=== PATIENT | male | born 1950 | race Caucasian/White ===

== ENCOUNTER → 2016-05-23 | Outpatient (CLI) | payer BC ==
[~2016-05-23] MED LIST: ALBU18002 INH; ASPCH81X PO; CETI10TA84 PO; FLUO20CA20 PO; FLUT27.5 NAE; LORA-741 PO; LOSA100T2 PO; MELA3TAB12 PO; MOME110A INH; PANT40TA PO; SUTENT PO; TRAM-10 PO; URC10 PO; VALA500T60 PO
--- NOTE | 2016-05-23 12:07 | DIAGNOSTIC IMAGING REPORT ---
CHEST CT WITHOUT CONTRAST CT DOSE: HISTORY: RENAL CELL CA *NO IV* TECHNIQUE: Multiaxial CT images of the chest were performed without contrast. COMPARISON: Chest CT 11/08/2015. PET CT 02/13/2016. FINDINGS: No pneumothorax or pleural effusions. The central airways are patent. Mild emphysema. The left lung is clear. The 8 mm irregular density within the right lung apex remains stable. There has been interval placement of a metallic fiducial marker within the right lung apex. There are 3 subcentimeter pulmonary nodules within the right middle lobe which remain stable. The dominant nodule on image 223 measures 6 mm. The smaller nodules are seen on images 176 and 185. No new pulmonary nodules identified. No suspicious lytic or blastic osseous lesions. A few stable small sclerotic foci within the right ribs favor bone islands. No mediastinal or hilar lymphadenopathy. The heart is normal in size. Prior left nephrectomy. Cystic focus at the nephrectomy bed is again noted. There is increase in size in the hypodense lesion abutting the superior border of the pancreatic tail. This measures 2.1 cm, previously measuring 9 mm. IMPRESSION: 1. No significant change within the chest. No definite evidence for metastatic disease. 2. Stable subcentimeter pulmonary nodules within the right lung. 3. Mild emphysema. 4. Increase in size in a 2.1 cm hypodense lesion at the superior border of the pancreatic tail. This is concerning for a metastatic lesion. Please refer to the dedicated abdomen and pelvis CT performed the same day for further evaluation of the abdominal structures. Electronically signed by: Milo Cruz M.D. 05/23/2016 12:05 PM Dictated Date/Time: 05/23/2016 11:53 AM
--- NOTE | 2016-05-23 12:17 | DIAGNOSTIC IMAGING REPORT ---
CT SCAN OF THE ABDOMEN AND PELVIS WITHOUT IV CONTRAST CLINICAL HISTORY: Renal cell carcinoma. COMPARISON STUDY: Abdominal CT dated 08/16/2015 and PET/CT dated 02/13/2016. TECHNIQUE: CT scan of the abdomen and pelvis is performed from the lung bases to the proximal femora. Images are reviewed in the axial, sagittal, and coronal planes. IV contrast was not administered for this examination. Oral contrast was utilized. Automated dose control exposure was utilized. CT DOSE: 1116.46 mGy.cm FINDINGS: Lung bases: The heart is normal in size and without pericardial effusion. A 6 mm right middle lobe pulmonary nodule image #32 is unchanged. The lung bases are otherwise clear. There is a tiny hiatal hernia. Liver: The unenhanced liver is normal in size, contour, and attenuation. There is no intrahepatic biliary ductal dilatation. A 1.8 cm low-attenuation focus in the subcapsular liver on image #99 was not clearly seen previously. This may represent focal fatty infiltration. Gallbladder: Unremarkable. Spleen: Normal in size and attenuation. Pancreas: There is a 2.4 x 2.2 cm lesion in the pancreatic tail seen on axial image #93. This was not clearly seen on the 08/16/2015 examination and is concerning for a pancreatic metastasis. The proximal pancreas is moderately atrophic and grossly unremarkable. Adrenal glands: The right adrenal gland is normal in appearance. The left adrenal gland is not identified and presumed surgically absent. Kidneys: The left kidney is surgically absent. There is no evidence of recurrent/residual soft tissue lesion in the operative bed. A postoperative fluid collection at the nephrectomy site has decreased in size from previous, measuring approximately 8 x 5.5 cm. The right kidney demonstrates mild cortical atrophy and is without hydronephrosis. There are no renal calculi identified. A 1.5 cm cyst arising from the right upper pole and a subcentimeter hyperdense lesion the right upper pole likely representing a complex cyst are similar to previous. Parapelvic cysts are unchanged. Abdominal vasculature: The abdominal aorta is normal in course and caliber noting moderate atherosclerotic calcification. Bowel: The small bowel and colon are normal in course and caliber. The appendix is well-visualized and normal. Peritoneum: There is no intraperitoneal free air or abdominal ascites. Lymphadenopathy: None. Pelvic viscera: The bladder, prostate, and seminal vesicles are normal as visualized. Skeletal structures: The skeletal structures are osteopenic. There is mild lumbosacral spondylosis. No lytic or blastic lesions are seen. Bone islands in the right iliac wing and the right 11th rib are unchanged. IMPRESSION: 1. There is a 2.2 x 2.4 cm low-attenuation lesion seen in the pancreatic tail. This is new from prior examinations and highly concerning for a pancreatic metastasis. 2. No additional foci of metastatic disease are suspected in the abdomen or pelvis. 3. There are postoperative changes from left nephrectomy and left adrenalectomy. A simple appearing fluid collection within the operative bed has decreased in size from prior studies and likely represents a seroma. 4. There is a 1.8 cm focus of subcapsular low-attenuation in the left lobe of the liver. This was not clearly seen previously and this likely represents focal fatty infiltration. Attention at follow-up is recommended. 5. A 6 mm right middle lobe pulmonary nodule is unchanged. See report of chest CT performed concurrently for detailed intrathoracic findings. 6. Additional changes as above. Electronically signed by: Patrick Blankenship M.D. 05/23/2016 12:15 PM Dictated Date/Time: 05/23/2016 12:01 PM
== END | disposition home or self-care (01) ==
LOC: C.CTS 11:20
PROVIDERS: ATTEND Internal Medicine Hematology & Oncology
DX: C64.2 Malignant neoplasm of left kidney, except renal pelvis (principal); R91.1 Solitary pulmonary nodule

== ENCOUNTER → 2016-05-27 | Outpatient (CLI) | payer BC ==
[2016-05-27 16:07] LABS: BASO % 0.3 %; BASO ABS # 0.01 K/uL (0-0.2); COMPLETE YES; EOS % 3.8 %; HEMATOCRIT 41.1 % (42-52); LYMPH % 38.1 %; LYMPH ABS # 1.42 K/uL (1.2-3.4); MEAN CELL VOLUME 81.7 fL (80-100); MEAN CORPUSCULAR HEMOGLOBIN 27.4 pg (25-34); MEAN CORPUSCULAR HGB CONC 33.6 g/dl (32-36); MEAN PLATELET VOLUME 10.2 fL (7.4-10.4); NEUT % 49.8 %; PLATELET COUNT 120 K/uL (130-400); RED BLOOD COUNT 5.03 M/uL (4.7-6.1); WHITE BLOOD COUNT 3.73 K/uL (4.8-10.8)
[2016-05-27 16:42] LABS: ALT/SGPT 22 U/L (12-78); BLOOD UREA NITROGEN 24 mg/dl (7-18); BUN/CREATININE RATIO 12.7 (10-20); CALCIUM 8.3 mg/dl (8.5-10.1); CARBON DIOXIDE 29 mmol/L (21-32); CHLORIDE 107 mmol/L (98-107); GLUCOSE 105 mg/dl (70-99); MAGNESIUM 1.8 mg/dl (1.8-2.4); POTASSIUM 4.1 mmol/L (3.5-5.1); SODIUM 145 mmol/L (136-145)
[2016-05-27 16:49] LABS: ALB/GLOB RATIO 1.1 (0.9-2); ALKALINE PHOSPHATASE 101 U/L (45-117); AST/SGOT 18 U/L (15-37)
== END | disposition home or self-care (01) ==
LOC: C.LAB 14:47
PROVIDERS: ATTEND Internal Medicine Hematology & Oncology
DX: C64.2 Malignant neoplasm of left kidney, except renal pelvis (principal)

== ENCOUNTER → 2016-06-04 | Outpatient (CLI) | payer BC ==
--- NOTE | 2016-06-04 09:57 | DIAGNOSTIC IMAGING REPORT ---
PET/CT CLINICAL HISTORY: Renal cell carcinoma. New pancreatic lesion. TECHNIQUE: A PET/CT was performed from the skull base through the upper thighs following intravenous injection of 13.78 mCi of F 18 FDG IV. The injection was performed at 7:26 AM on June 04, 2016 and imaging began at 8:17 AM on June 04, 2016. Unenhanced CT was performed for attenuation correction purposes and anatomic localization. COMPARISON STUDY: PET/CT February 13, [address] of the chest, abdomen pelvis January 21, 2017. FINDINGS: Head and neck: No suspicious FDG uptake is identified within the neck. There is no cervical lymphadenopathy. Chest: Fiducial markers within the right upper lobe are noted. An 8 mm irregular density within the right upper lobe shown on image 71 is unchanged since prior exam. An additional irregular density adjacent to the fiducial markers is unchanged. These do not have significant FDG uptake although are likely below size threshold for PET evaluation. A 4 mm right middle lobe nodule shown image 102 is unchanged since prior PET/CT. An additional right middle lobe nodule is benign given stability from earlier studies. No new pulmonary nodules are present. Abdomen and Pelvis: There are postsurgical findings consistent with a left nephrectomy. The nephrectomy bed fluid collection is similar to prior CT, measuring 8.6 x 5.7 cm. Note is made of a 2.6 x 2.6 cm centrally hypodense lesion either arising from or adjacent to the pancreatic tail extending superiorly from the pancreas. This corresponds to the lesion shown on prior CT. This demonstrates mild peripheral FDG uptake with an SUV max of 3.1. No additional pancreatic lesions are identified on this unenhanced exam. A suspected hyperdense cyst within the upper pole of the right kidney is unchanged. There is no evidence for a bowel obstruction. No pelvic lymphadenopathy is present. Musculoskeletal: No suspicious skeletal uptake is identified. IMPRESSION: 1. Mild peripheral FDG uptake of the 2.6 cm pancreatic lesion. This appears to arise from the pancreatic tail. This lesion is highly suggestive of a neoplastic process and metastatic disease is favored. A primary pancreatic lesion could appear similar although is considered less likely. If indicated, consideration could be given to a point with endoscopic ultrasound. 2. Otherwise, no change in appearance since PET/CT of February 05, 2016. Stable right lung nodules. These remain indeterminate and should be assessed on subsequent studies. Electronically signed by: Kavin Tavera M.D. 06/04/2016 9:55 AM Dictated Date/Time: 06/04/2016 9:18 AM
== END | disposition home or self-care (01) ==
LOC: C.PET 07:15
PROVIDERS: ATTEND Internal Medicine Hematology & Oncology
DX: C64.2 Malignant neoplasm of left kidney, except renal pelvis (principal)

== ENCOUNTER → 2016-06-12 | Outpatient (CLI) | payer BC ==
[2016-06-12 12:10] LABS: BASO % 0.2 %; BASO ABS # 0.01 K/uL (0-0.2); COMPLETE YES; EOS % 2.3 %; IG% 0.2 %; LYMPH % 29.1 %; LYMPH ABS # 1.38 K/uL (1.2-3.4); MEAN CELL VOLUME 82.2 fL (80-100); MEAN CORPUSCULAR HEMOGLOBIN 27.9 pg (25-34); MEAN PLATELET VOLUME 9.9 fL (7.4-10.4); MONO % 6.1 %; NEUT % 62.1 %; PLATELET COUNT 143 K/uL (130-400); RED BLOOD COUNT 5.23 M/uL (4.7-6.1); WHITE BLOOD COUNT 4.75 K/uL (4.8-10.8)
[2016-06-12 12:52] LABS: ALB/GLOB RATIO 1.2 (0.9-2); ALKALINE PHOSPHATASE 108 U/L (45-117); ALT/SGPT 25 U/L (12-78); AST/SGOT 17 U/L (15-37); BLOOD UREA NITROGEN 22 mg/dl (7-18); BUN/CREATININE RATIO 10.4 (10-20); CARBON DIOXIDE 30 mmol/L (21-32); CHLORIDE 106 mmol/L (98-107); GLUCOSE 114 mg/dl (70-99); MAGNESIUM 1.9 mg/dl (1.8-2.4); POTASSIUM 3.8 mmol/L (3.5-5.1); SODIUM 144 mmol/L (136-145)
== END | disposition home or self-care (01) ==
LOC: C.LAB 10:53
PROVIDERS: ATTEND Internal Medicine Hematology & Oncology
DX: C64.2 Malignant neoplasm of left kidney, except renal pelvis (principal)

== ENCOUNTER 2016-06-27 08:31 | Day surgery (SDC) | payer BC ==
[2016-06-18 13:31] VITALS: BMI 27.0
[~2016-06-27] VITALS: Ht 182.9 cm; Wt 90.9 kg
[~2016-06-27 08:31] MED LIST changes: -FLUO20CA20 PO
[2016-06-27 08:57] VITALS: BP 142/89; PULSE 81; TEMP 36.6; O2SAT 94; Ht 182.9 cm; Wt 90.9 kg
[2016-06-27 09:05] LABS: HEMATOCRIT 43.1 % (42-52); MEAN CORPUSCULAR HEMOGLOBIN 29.2 pg (25-34); RED BLOOD COUNT 5.13 M/uL (4.7-6.1); WHITE BLOOD COUNT 4.39 K/uL (4.8-10.8)
[2016-06-27] MEDS ORDERED: NALOXONE HCL 0.4 MG/1 ML VIAL/CARP IV PRN (09:15)
[2016-06-27] MEDS ORDERED: ATROPINE SULFATE 0.1 MG/ML 5ML SYR IV PRN (09:15)
[2016-06-27] MEDS ORDERED: HYDROmorphone INJ 2 MG/ML SYR/VIAL IV PRN (09:15)
[2016-06-27] MEDS ORDERED: FENTANYL CITRATE INJ 50 MCG/1 ML 2 ML VIAL IV PRN (09:15)
[2016-06-27] MEDS ORDERED: MEPERIDINE HCL 25 MG/ML CARP IV PRN (09:15)
[2016-06-27] MEDS ORDERED: EpHEDrine SULFATE INJ 50 MG/ML AMP IV PRN (09:15)
[2016-06-27] MEDS ORDERED: LABETALOL HCL IV 5 MG/ML 20ML IV PRN (09:15)
[2016-06-27] MEDS ORDERED: ONDANSETRON INJ 2 MG/ML 2 ML VIAL IV PRN (09:15)
[2016-06-27] MEDS ORDERED: FLUMAZENIL 0.1 MG/1 ML 10 ML VIAL IV PRN (09:15)
[2016-06-27] MEDS ORDERED: PHENYLEPHRINE 100MCG/ML 5ML SYR IV PRN (09:15)
[2016-06-27 09:24] LABS: BUN/CREATININE RATIO 9.7 (10-20); CALCIUM 8.4 mg/dl (8.5-10.1); CREATININE 2.1 mg/dl (0.60-1.40); POTASSIUM 3.4 mmol/L (3.5-5.1)
[2016-06-27 09:37] LABS: MEAN CORPUSCULAR HGB CONC 34.8 g/dl (32-36); MEAN PLATELET VOLUME 9.5 fL (7.4-10.4); PLATELET COUNT 85 K/uL (130-400); PLT ESTIMATE DECREASED
[2016-06-27] MEDS ORDERED: PROPOFOL IV EMULSION 10 MG/ML 20 ML VIAL IV ONE ×2 (09:52→11:35)
[2016-06-27] MEDS ORDERED: DEXAMETHASONE SOD INJ 4 MG/ML VIAL ONE (09:52)
[2016-06-27] MEDS ORDERED: ROCURONIUM BROMIDE 10 MG/ML 5 ML VIAL ONE (09:52)
[2016-06-27] MEDS ORDERED: ONDANSETRON INJ 2 MG/ML 2 ML VIAL ONE (09:52)
[2016-06-27] MEDS ORDERED: LIDOCAINE HCL 2% 2 ML VIAL (20MG/ML) ONE (09:52)
[2016-06-27] MEDS ORDERED: MIDAZOLAM HCL 1 MG/ML 2ML VIAL ONE (09:53)
[2016-06-27] MEDS ORDERED: FENTANYL CITRATE INJ 50 MCG/1 ML 2 ML VIAL ONE (09:53)
[2016-06-27] MEDS ORDERED: SODIUM CHLORIDE 0.9% 500ML 500 ML IV ONE ×3 (10:00→10:30)
--- NOTE | 2016-06-27 10:30 | Endo History and Physical ---
History & Physical Date of Service: Jun 27, 2016. Chief Complaint: Referring Physician: Past Medical History Asthma, Cancer, Hypertension, Kidney Disease, Other renal cell CA; pancreatic lesion inbody/tail Past Surgical History Hx Cardiac Surgery: No Hx Internal Defibrillator: No Hx Pacemaker: No Hx Abdominal Surgery: No Hx Post-Op Nausea and Vomiting: No Hx Cancer Surgery: Yes (RT CRANIOTOMY) Hx Thoracic Surgery: Yes (BRONCHOSCOPY) Hx Orthopedic: Yes (LEFT KNEE ARTHROSCOPY) Hx Urinary Tract Surgery: Yes (PARTIAL LEFT NEPHECTOMY, LEFT TOTAL NEPHRECTOMY , RIGHT KIDNEY BIOPSY) Social History Smoking Status: Former Smoker Hx Substance Use: No Hx Alcohol Use: No (RARE) Allergies Coded Allergies: No Known Drug Allergy (Verified Allergy, Unknown, `, 06/27/16) Current Medications Reported Home Medications Medications Dose Route/Sig Max Daily Dose Days Date Category [Sutent] 50 Mg PO HS 06/18/16 Reported Protonix (Pantoprazole Sodium) 40 Mg Tab 40 Mg PO BID 02/06/16 Reported Proair Respiclick (Albuterol Sulfate) 108 Mcg/Act Aer 1 Puff INH BID PRN 02/06/16 Reported Aspirin Chewable (Aspirin) 81 Mg Chew 81 Mg PO QAM 02/06/16 Reported Melatonin (Melatonin-Pyridoxine) 1 Tab Tab 3 Mg PO HS 02/06/16 Reported Zyrtec (Cetirizine HCl) 10 Mg Tab 10 Mg PO QAM 02/06/16 Reported Valtrex (Valacyclovir HCl) 500 Mg Tab 500 Mg PO BID PRN 02/06/16 Reported Ultram (Tramadol HCl) 50 Mg Tab 1 Tab PO TID PRN 30 02/06/16 Reported Veramyst (Fluticasone Furoate) 27.5 Mcg/[place] Spr 2 [place] RIANNA DAILY PRN 30 02/06/16 Reported Potassium Citrate 10 Meq Tab 1 Tab PO BID 02/06/16 Reported Hyzaar (Losartan Potassium & Hydrochlo) 1 Tab Tab 1 Tab PO QAM 02/06/16 Reported Ativan (Lorazepam) 0.5 Mg Tab 0.5 Mg PO Q6H PRN 02/06/16 Reported Asmanex 30 Metered Doses (Mometasone Furoate (Inhalation) 110 Mcg/Inh Aer 1 Puff INH QAM 02/06/16 Reported Vital Signs Weight (Kilograms): 90.91 Height (Feet): 6 Height (Inches): 0 Date Time Temp Pulse Resp B/P Pulse Ox O2 Delivery O2 Flow Rate FiO2 06/27/16 08:57 36.6 81 18 142/89 94 Room Air Physical Exam AAO x3 Nl s1s2 lungs CTA Abd soft NT/ND + Bs - CCe plt 85K; off ASA x 1 week kristie Assessment and Plan EUS/FNA
[2016-06-27] MEDS ORDERED: METOPROLOL TARTRATE 1 MG/ML VIAL ONE (10:55)
[2016-06-27] MEDS ORDERED: CIPROFLOXACIN 400MG / 200ML D5W ONE (11:10)
[2016-06-27] MEDS ORDERED: NEOSTIGMINE METHYLSULFATE 5 MG/5 ML SYR ONE (11:55)
[2016-06-27] MEDS ORDERED: GLYCOPYRROLATE INJ 0.2 MG/ML VIAL ONE (11:55)
--- NOTE | 2016-06-27 12:41 | GI REPORT ---
Procedure Date: 06/27/2016 10:39 AM Procedure: Upper EUS Indications: Suspected mass in pancreas on CT scan, Abnormal abdominal PET scan Medicines: General Anesthesia Complications: No immediate complications. Estimated blood loss: Minimal. Estimated Blood Loss: Estimated blood loss: none. Procedure: Pre-Anesthesia Assessment: - Prior to the procedure, a History and Physical was performed, and patient medications and allergies were reviewed. The patient's tolerance of previous anesthesia was also reviewed. The risks and benefits of the procedure and the sedation options and risks were discussed with the patient. All questions were answered, and informed consent was obtained. Prior Anticoagulants: The patient has taken aspirin, last dose was 7 days prior to procedure. ASA Grade Assessment: II - A patient with mild systemic disease. After reviewing the risks and benefits, the patient was deemed in satisfactory condition to undergo the procedure. After obtaining informed consent, the endoscope was passed under direct vision. Throughout the procedure, the patient's blood pressure, pulse, and oxygen saturations were monitored continuously. The Endosonoscope was introduced through the mouth, and advanced to the duodenum for ultrasound examination from the esophagus, stomach and duodenum. The upper EUS was accomplished without difficulty. The patient tolerated the procedure well. Findings: Endoscopic Finding : The examined esophagus was normal. The entire examined stomach was normal. The ampulla, duodenal bulb, first part of the duodenum, 2nd part of the duodenum and area of the papilla were normal. Endosonographic Finding : The esophagus, stomach and duodenum and adjacent structures were visualized endosonographically. There was no sign of significant endosonographic abnormality in the esophagus. No pathologic lymphadenopathy was identified. Endosonographic images of the stomach were unremarkable. No pathologic lymphadenopathy was identified. There was no sign of significant endosonographic abnormality in the ampulla, in the duodenal bulb and in the second portion of the duodenum. No pathologic lymphadenopathy and no masses were identified. There was no sign of significant endosonographic abnormality in the ampulla. No pathologic lymphadenopathy was identified. There was no sign of significant endosonographic abnormality in the common bile duct, in the gallbladder neck and in the gallbladder body. An unremarkable gallbladder, no pathologic lymphadenopathy, no stones, no biliary sludge and ducts of normal caliber were identified. There was diffuse abnormal echotexture in the liver. This was characterized by a heterogenous appearance. A round mass was identified in the pancreatic tail. The mass was hypoechoic, hyperechoic and heterogenous. The mass measured 26 mm by 24 mm in maximal cross-sectional diameter. The endosonographic borders were poorly-defined. The remainder of the pancreas was examined. The endosonographic appearance of parenchyma and the upstream pancreatic duct indicated no duct dilation, no ductal calcifications and that the remainder of the pancreas was unremarkable. Fine needle aspiration for cytology was performed. Color Doppler imaging was utilized prior to needle puncture to confirm a lack of significant vascular structures within the needle path. Six passes total were made with the 22 gauge needle ( 3 passes) and with the 25 gauge needle (3 passes) using a transgastric approach. Some passes were made with a stylet. A steam crane operator was present and performed a preliminary cytologic examination. The cellularity of the specimen was adequate. Final cytology results are pending. No lymphadenopathy seen. 5 X 8 CM CYST ADJACENT TO SPLEEN BUT SEPARATE AND SEPARATE FROM NEARBY VESSELS AND THE PANCREATIC LESION. NO INTERNAL DEBRIS IDENTIFIED. No samples/ aspitration performed. Impression: - Normal esophagus. - Normal stomach. - Normal ampulla, duodenal bulb, first part of the duodenum, 2nd part of the duodenum and area of the papilla. - There was no sign of significant pathology in the esophagus. - Endosonographic images of the stomach were unremarkable. - There was no sign of significant pathology in the ampulla, in the duodenal bulb and in the second portion of the duodenum. - There was no sign of significant pathology in the common bile duct, in the gallbladder neck and in the gallbladder body. - There was diffuse abnormal echotexture in the liver. This was characterized by a heterogenous appearance. - A mass was identified in the pancreatic tail. Fine needle aspiration performed. Recommendation: - Discharge patient to home (ambulatory). - Clear liquid diet today. - Advance diet as tolerated. - Await cytology results. - Return to referring physician as previously scheduled. - The findings and recommendations were discussed with the referring physician.( Dr Warren) MD Niels Crabtree MD 06/27/2016 12:40:40 PM This report has been signed electronically. Note Initiated On: 06/27/2016 10:39 AM I attest to the content of the Intraoperative Record and orders documented therein, exceptions below
--- NOTE | 2016-06-27 12:43 | Discharge Instructions ---
Endoscopy Patient Instructions Date / Procedure(s) Performed Jun 27, 2016. Allergy Information Coded Allergies: No Known Drug Allergy (Verified Allergy, Unknown, `, 06/27/16) Discharge Date / Findings Jun 27, 2016. 1) pancreatic mass- FNA performed Medication Instructions Restart Stopped Medication(s): Reported Home Medications Medications Dose Route/Sig Max Daily Dose Days Date Category [Sutent] 50 Mg PO HS 06/18/16 Reported Protonix (Pantoprazole Sodium) 40 Mg Tab 40 Mg PO BID 02/06/16 Reported Proair Respiclick (Albuterol Sulfate) 108 Mcg/Act Aer 1 Puff INH BID PRN 02/06/16 Reported Aspirin Chewable (Aspirin) 81 Mg Chew 81 Mg PO QAM 02/06/16 Reported Melatonin (Melatonin-Pyridoxine) 1 Tab Tab 3 Mg PO HS 02/06/16 Reported Zyrtec (Cetirizine HCl) 10 Mg Tab 10 Mg PO QAM 02/06/16 Reported Valtrex (Valacyclovir HCl) 500 Mg Tab 500 Mg PO BID PRN 02/06/16 Reported Ultram (Tramadol HCl) 50 Mg Tab 1 Tab PO TID PRN 30 02/06/16 Reported Veramyst (Fluticasone Furoate) 27.5 Mcg/[place] Spr 2 [place] RIANNA DAILY PRN 30 02/06/16 Reported Potassium Citrate 10 Meq Tab 1 Tab PO BID 02/06/16 Reported Hyzaar (Losartan Potassium & Hydrochlo) 1 Tab Tab 1 Tab PO QAM 02/06/16 Reported Ativan (Lorazepam) 0.5 Mg Tab 0.5 Mg PO Q6H PRN 02/06/16 Reported Asmanex 30 Metered Doses (Mometasone Furoate (Inhalation) 110 Mcg/Inh Aer 1 Puff INH QAM 02/06/16 Reported Reported Home Medications Medications Dose Route/Sig Max Daily Dose Days Date Category [Sutent] 50 Mg PO HS 06/18/16 Reported Protonix (Pantoprazole Sodium) 40 Mg Tab 40 Mg PO BID 02/06/16 Reported Proair Respiclick (Albuterol Sulfate) 108 Mcg/Act Aer 1 Puff INH BID PRN 02/06/16 Reported Aspirin Chewable (Aspirin) 81 Mg Chew 81 Mg PO QAM 02/06/16 Reported Melatonin (Melatonin-Pyridoxine) 1 Tab Tab 3 Mg PO HS 02/06/16 Reported Zyrtec (Cetirizine HCl) 10 Mg Tab 10 Mg PO QAM 02/06/16 Reported Valtrex (Valacyclovir HCl) 500 Mg Tab 500 Mg PO BID PRN 02/06/16 Reported Ultram (Tramadol HCl) 50 Mg Tab 1 Tab PO TID PRN 30 02/06/16 Reported Veramyst (Fluticasone Furoate) 27.5 Mcg/[place] Spr 2 [place] RIANNA DAILY PRN 30 02/06/16 Reported Potassium Citrate 10 Meq Tab 1 Tab PO BID 02/06/16 Reported Hyzaar (Losartan Potassium & Hydrochlo) 1 Tab Tab 1 Tab PO QAM 02/06/16 Reported Ativan (Lorazepam) 0.5 Mg Tab 0.5 Mg PO Q6H PRN 02/06/16 Reported Asmanex 30 Metered Doses (Mometasone Furoate (Inhalation) 110 Mcg/Inh Aer 1 Puff INH QAM 02/06/16 Reported Provider Instructions Activity Restrictions - No exercising or heavy lifting for 24 hours. - Do not drink alcohol the day of the procedure. - Do not drive a car or operate machinery until the day after the procedure. - Do not make any important decisions or sign important papers in 24 hours after the procedure. Following Day: - Return to full activity which may include returning to work/school. Diet Start your diet with liquids and light foods (jello, soup, juice, toast). Then eat your usual diet if not nauseated. Treatment For Common After Affects For mild abdominal pain, bloating, or excessive gas: - Rest - Eat lightly - Lie on right side Follow-Up Information Follow-up with as scheduled Anesthesia Information What You Should Know You have had a procedure that required some medicine to reduce anxiety and discomfort. This treatment is called moderate sedation. After receiving the treatment, you may be sleepy, but you will be able to breathe on your own. The effects of the treatment may last for several hours. Follow these instructions along with Activity/Diet recommendations noted above: * Do NOT do anything where dizziness or clumsiness would be dangerous. * Rest quietly at home today, then you can be up and about tomorrow. * Have a responsible person stay with you the rest of today. * You may have had an I.V. today. If so, you may take the dressing off later today. Recommendations Call your doctor if: * Trouble breathing * Continuous vomiting for more than 24 hours * Temperature above 101 degrees * Severe abdominal pain or bloating * Pain not relieved by pain medicine ordered * There is increased drainage or redness from any incision * A large amount of rectal bleeding greater than 2-3 tablespoons. (If you had a polyp/s removed or have hemorrhoids, a small amount of blood - from the rectum is to be expected.) * You have any unanswered questions or concerns. IN THE EVENT OF A SERIOUS EMERGENCY, GO TO THE NEAREST EMERGENCY ROOM Your discharge instructions were prepared by provider Niels Burnett. Patient Instructions Signature Page Alberto Haines Patient (or Guardian) Signature/Date: I have read and understand the instructions given to me by my caregivers. Caregiver/RN/Doctor Signature/Date: The above-named patient and/or guardian has received patient instructions on this date. + Original Patient Signature Page (only) stays with chart. Please make copy for patient.
--- NOTE | 2016-06-27 12:51 | Anesthesiology Progress Note ---
Anesthesia Post Op Note Date & Time Jun 27, 2016 at 12:51 Vital Signs Pain Intensity: 0 Vital Signs Past 12 Hours Date Time Temp Pulse Resp B/P Pulse Ox O2 Delivery O2 Flow Rate FiO2 06/27/16 12:40 63 16 142/92 100 Diffusion Mask 10 06/27/16 12:30 63 16 160/93 100 Diffusion Mask 10 06/27/16 12:22 36 65 16 158/95 100 Diffusion Mask 10 06/27/16 08:57 36.6 81 18 142/89 94 Room Air Notes Mental Status: alert / awake / arousable, participated in evaluation Pt Amnestic to Procedure: Yes Nausea / Vomiting: adequately controlled Pain: adequately controlled Airway Patency, RR, SpO2: stable & adequate BP & HR: stable & adequate Hydration State: stable & adequate Anesthetic Complications: no major complications apparent
[2016-06-27 13:10] VITALS: BP 146/95; PULSE 68; TEMP 36.5; O2SAT 98
[2016-06-27 13:40] VITALS: BP 148/90; PULSE 65; O2SAT 98
[2016-06-27 14:05] VITALS: BP 144/89; PULSE 66; TEMP 36.2; O2SAT 98
== END 2016-06-27 14:10 | disposition home or self-care (01) ==
LOC: C.ACU 08:31
PROVIDERS: ATTEND Internal Medicine Gastroenterology
DX: K86.9 Disease of pancreas, unspecified (principal); J45.909 Unspecified asthma, uncomplicated; I10 Essential (primary) hypertension; N28.9 Disorder of kidney and ureter, unspecified; Z87.891 Personal history of nicotine dependence; Z90.5 Acquired absence of kidney; Z79.82 Long term (current) use of aspirin

== ENCOUNTER → 2016-08-26 | Outpatient (CLI) | payer BC ==
[2016-08-26 12:48] LABS: BLOOD UREA NITROGEN 20 mg/dl (7-18); BUN/CREATININE RATIO 11.8 (10-20); CARBON DIOXIDE 31 mmol/L (21-32); CHLORIDE 109 mmol/L (98-107); GLUCOSE 104 mg/dl (70-99); POTASSIUM 3.9 mmol/L (3.5-5.1); SODIUM 146 mmol/L (136-145)
[2016-08-27 15:42] LABS: CALCIUM 8.9 mg/dl (8.5-10.1)
== END | disposition home or self-care (01) ==
LOC: C.LAB 11:42
PROVIDERS: ATTEND Nurse Practitioner Family
DX: C64.2 Malignant neoplasm of left kidney, except renal pelvis (principal)

== ENCOUNTER → 2016-08-28 | Outpatient (CLI) | payer BC ==
--- NOTE | 2016-08-28 10:14 | DIAGNOSTIC IMAGING REPORT ---
ADDENDUM Review of the patient's CT scan with prior study dated 05/23/2016 shows the findings of the pancreatic tail to be baseline similar and are only minimally increased in prominence. Electronically signed by: Uriel Vanegas M.D. 09/01/2016 9:20 AM Dictated Date/Time: 09/01/2016 9:11 AM ORIGINAL REPORT ABDOMEN AND PELVIS CT WITH ORAL CONTRAST CT DOSE: 879.50 mGycm HISTORY: Pancreatic lesion *ORAL CONTRAST ONLY*, RENAL CA TECHNIQUE: Multiaxial CT images of the abdomen and pelvis were performed following the use of oral contrast. COMPARISON STUDY: 05/23/2016. PET CT 06/04/2016 FINDINGS: Compromised exam due to the absence of intravenous contrast enhancement. Small nodular density anterior aspect right middle lobe is unchanged. There are no new or interval basilar pulmonary nodules. The lesion of the pancreatic tail currently measures 2.2 cm. X 3.2 cm. This appears slightly increased in prominence compared to the prior exam although again is difficult to evaluate due to the absence of contrast enhancement. Remainder the pancreas is unremarkable. Patient status post left nephrectomy. The residual fluid pocket within the left renal bed is unchanged. Right kidney is negative for hydronephrosis. Several right renal parapelvic cysts are present. There is no significant abdominal pelvic or inguinal adenopathy. IMPRESSION: 1. Limited exam due to the absence of intravenous contrast enhancement. 2. Probable mild progression of a pancreatic tail lesion. This again raises the possibility of neoplasm. 3. Unchanging fluid pocket within the left nephrectomy bed. 4. Unchanging micronodularity right lung base. Electronically signed by: Uriel Vanegas M.D. 08/28/2016 10:12 AM Dictated Date/Time: 08/28/2016 10:02 AM
--- NOTE | 2016-08-28 10:28 | DIAGNOSTIC IMAGING REPORT ---
CT SCAN OF THE CHEST WITHOUT IV CONTRAST CLINICAL HISTORY: Pulmonary nodule. History of renal cell carcinoma. COMPARISON STUDY: Chest CT scans dated 05/23/2016, 11/08/2015, and 03/11/2013. TECHNIQUE: CT scan of the thorax was performed from the thoracic inlet to the upper abdomen. Images are reviewed in the axial, sagittal, and coronal planes. IV contrast was not administered for this examination as per the referring clinician. CT DOSE: 517.03 mGycm FINDINGS: Thyroid: Imaged portions of the thyroid gland are normal in size and attenuation. Thoracic aorta: There is mild atherosclerotic calcification of the thoracic aorta, which is normal in caliber and demonstrates bovine variant arch anatomy. Heart: The heart is normal in size and without pericardial effusion. There are scattered coronary artery calcifications. The pulmonary trunk is normal in caliber. Lungs and pleural spaces: There are emphysematous changes. No airspace consolidation or pleural effusion is seen. A 9 mm irregular opacity at the right apex seen on axial image #59 is unchanged dating back to 2012 and may represent scar. A metallic fiducial in the right upper lobe is unchanged and there is mild nodularity in this region which measures up to 8 mm. There is a 6 mm right middle lobe pulmonary nodule seen on axial image #232. This is new from 2013 and is unchanged from 05/23/2016. 2 additional right middle lobe nodules are seen on images #181 and #187. These are also unchanged. No new pulmonary nodules Are identified. The trachea and central airways are clear. A calcified granuloma is present at the medial right lung base. Mediastinum: There are scattered subcentimeter mediastinal lymph nodes. These are not pathologically enlarged by size criteria. Rhoda: Not well assessed without IV contrast. Axillae: There is no axillary lymphadenopathy. Upper abdomen: The left kidney is surgically absent. There is cortical atrophy of the right kidney. A 1.9 cm cyst is noted in the right upper pole. There is approximately 8 x 5 cm simple appearing cystic lesion again seen between the pancreatic tail and the spleen on axial image #315. There is glandular atrophy of the pancreas. A 2.8 cm low-attenuation lesion is again seen in the distal pancreatic body/tail on image #287. Geographic fatty infiltration is seen near the hepatic hilum. Skeletal structures: The skeletal structures are osteopenic. No lytic or blastic bony lesions are seen. Bone islands in the right anterior 5th rib, the right 11th rib, the left scapula, and the right humeral head are unchanged dating back to 2012. IMPRESSION: 1. No significant change from the 05/23/2016 examination. 2. Three subcentimeter right middle lobe pulmonary nodules as well as right apical densities and a the right apical fiducial are again noted. 3. No new pulmonary nodule is identified. 4. Emphysema. 5. There is no airspace consolidation or pleural effusion. 6. A pancreatic tail lesion and a cystic lesion between the pancreas and spleen are similar to previous. See report of abdominal CT performed concurrently for detailed intra-abdominal findings. Electronically signed by: Patrick Blankenship M.D. 08/28/2016 10:26 AM Dictated Date/Time: 08/28/2016 10:06 AM
== END ==
LOC: C.CTS 09:36
PROVIDERS: ATTEND Nurse Practitioner Family
DX: C64.2 Malignant neoplasm of left kidney, except renal pelvis (principal)

== ENCOUNTER → 2016-09-16 | Outpatient (CLI) | payer BC ==
[2016-09-16 17:52] LABS: URINE APPEARANCE CLEAR (CLEAR); URINE BILIRUBIN NEG (NEG); URINE COLOR DK YELLOW; URINE NITRITE NEG (NEG); URINE PH 5.5 (4.5-7.5); URINE SPECIFIC GRAVITY 1.025 (1.000-1.030); UROBILINOGEN NEG (NEG)
[2016-09-16 17:54] LABS: MANUAL MICROSCOPIC REQUIRED? NO; REVIEW REQ? NO
[2016-09-16 18:10] LABS: BLOOD UREA NITROGEN 23 mg/dl (7-18); BUN/CREATININE RATIO 10.9 (10-20); CALCIUM 8.8 mg/dl (8.5-10.1); CARBON DIOXIDE 33 mmol/L (21-32); CHLORIDE 108 mmol/L (98-107); GLUCOSE 94 mg/dl (70-99); POTASSIUM 3.8 mmol/L (3.5-5.1); SODIUM 144 mmol/L (136-145)
[2016-09-16 18:16] LABS: RATIO 9.6 mcg/mg (0-30.0)
== END | disposition home or self-care (01) ==
LOC: C.LAB1850 16:33
PROVIDERS: ATTEND Internal Medicine
DX: I10 Essential (primary) hypertension (principal)

== ENCOUNTER → 2016-10-14 | Outpatient (CLI) | payer BC ==
--- NOTE | 2016-10-14 08:57 | DIAGNOSTIC IMAGING REPORT ---
CHEST CT WITHOUT CONTRAST CT DOSE: HISTORY: Renal cell carcinoma. Follow-up. TECHNIQUE: Multiaxial CT images of the chest were performed without contrast. COMPARISON: Chest CT 08/28/2016. FINDINGS: The central airways are patent. No pleural effusions. No pneumothorax. Stable subcentimeter irregular densities within the right lung apex and a metallic fiducial marker. Dominant irregular density measures 9 mm on image 54. There are 3 stable subcentimeter pulmonary nodules within the right middle lobe with the largest on image 219 measuring 5 mm. No new pulmonary nodules identified. No suspicious lytic or blastic osseous lesions. Old, healed bilateral rib fractures. No mediastinal or hilar lymphadenopathy. Normal caliber thoracic aorta. IMPRESSION: 1. No significant change compared to the prior study. 2. Stable subcentimeter nodules within the right lung as described above. No new pulmonary nodules identified. Electronically signed by: Milo Cruz M.D. 10/14/2016 8:55 AM Dictated Date/Time: 10/14/2016 8:49 AM
--- NOTE | 2016-10-14 09:07 | DIAGNOSTIC IMAGING REPORT ---
CT SCAN OF THE ABDOMEN AND PELVIS WITHOUT CONTRAST CLINICAL HISTORY: Metastatic renal cell carcinoma. COMPARISON STUDY: 08/28/2016 TECHNIQUE: CT scan of the abdomen and pelvis was performed from the lung bases to the proximal femurs. Images are reviewed in the axial, sagittal, and coronal planes. IV contrast was not administered for this examination. CT DOSE: 1056.02 mGy.cm FINDINGS: Lower chest: The heart is normal in size and configuration, without pericardial effusion. The lung bases and pleural spaces are clear. Liver: There is a subtle 18 mm hypodensity within the medial segment of the left lobe of the liver. There is a second 7 mm hypodensity within the left lobe. Gallbladder: Unremarkable. Spleen: Normal in size and attenuation. Pancreas: There is a 7.5 cm fluid collection located between the pancreatic tail and spleen.. This remains unchanged in size from the preceding study, and likely represents a postsurgical collection secondary to left renal resection. There is a 3 cm hypodense lesion contiguous with the pancreatic tail, also unchanged. Adrenal glands: Unremarkable. Kidneys: The left kidney is surgically absent. There is a 15 mm hypodensity arising from the upper pole the right kidney, possibly representing a cyst. Bowel: There are no transition zones indicate bowel obstruction. There is no evidence of acute diverticulitis. There is no acute appendicitis. Peritoneum: There is no intraperitoneal free air or abdominal ascites. There are small fat-containing inguinal hernias Vasculature: The abdominal aorta is normal in course and caliber. Adenopathy: None. Pelvic viscera: The bladder, and pelvic viscera are unremarkable. Skeletal structures: There is a stable 15 mm sclerotic lesion within the right iliac wing. There is a stable sclerotic lesion involving the right 11th rib. IMPRESSION: 1. Stable 3 cm hypodense pancreatic tail lesion 2. Stable 7.5 cm fluid collection located in the region of the left nephrectomy bed between the pancreatic tail and pancreas 3. Subtle nonspecific left hepatic lobe hypodensities, unchanged from the preceding study. 4. No evidence of pathologic adenopathy 5. Stable skeletal sclerotic lesions Electronically signed by: Clyde Reyes M.D. 10/14/2016 9:05 AM Dictated Date/Time: 10/14/2016 8:55 AM
== END | disposition home or self-care (01) ==
LOC: C.CTS 08:16
PROVIDERS: ATTEND Nurse Practitioner Family
DX: C64.2 Malignant neoplasm of left kidney, except renal pelvis (principal); K86.9 Disease of pancreas, unspecified; Z90.5 Acquired absence of kidney; K76.9 Liver disease, unspecified; M89.9 Disorder of bone, unspecified; R91.8 Other nonspecific abnormal finding of lung field

== ENCOUNTER → 2016-12-15 | Outpatient (CLI) | payer BC ==
[~2016-12-15] MED LIST changes: +OPTIRAY 320 IV PRN
--- NOTE | 2016-12-15 10:16 | DIAGNOSTIC IMAGING REPORT ---
ABDOMEN AND PELVIS CT WITH ORAL CONTRAST CT DOSE: HISTORY: Metastatic renal cell carcinoma. TECHNIQUE: Multiaxial CT images of the abdomen and pelvis were performed following the use of oral contrast. A dose lowering technique was utilized adhering to the principles of ALARA. COMPARISON STUDY: Abdomen and pelvis CT 10/14/2016. FINDINGS: Stable 5 mm nodule within the right middle lobe. The left lung base is clear. No pneumoperitoneum. No pneumatosis. Stable small sclerotic foci within the right 11th rib and right iliac wing. Stable 12 mm hypodense lesion within the left hepatic lobe adjacent to the gallbladder fossa. This may represent a cyst. No splenic lesions identified. Normal right adrenal gland. No retroperitoneal lymphadenopathy. The gallbladder is unremarkable. Decrease in size in the 2.1 cm hypodense lesion at the pancreatic tail. This previous measured 3 cm. No significant change in the 7.5 cm fluid collection located between the spleen and pancreatic tail. There are few surrounding surgical clips. This may be related to the prior left fracture medial. The bladder is unremarkable. Colonic diverticulosis. No bowel wall thickening or obstruction. Normal appendix. No change in the 15 mm hypodense lesion within the upper pole the right kidney. There are few right peripelvic renal cysts, unchanged. No hydronephrosis. IMPRESSION: 1. Decrease in size in the 2.1 cm hypodense lesion within the pancreatic tail. 2. Stable 7.5 cm fluid collection located between the pancreatic tail and spleen at the left nephrectomy bed. 3. Stable hypodense lesion within the left hepatic lobe. 4. Stable skeletal sclerotic lesions. 5. Stable 5 mm nodule within the right middle lobe. Electronically signed by: Milo Cruz M.D. 12/15/2016 10:15 AM Dictated Date/Time: 12/15/2016 10:08 AM
--- NOTE | 2016-12-15 10:26 | DIAGNOSTIC IMAGING REPORT ---
(CHEST) THORAX WITHOUT CLINICAL HISTORY: 66 years-old Male presenting with left nephrectomy, history of renal cell carcinoma. TECHNIQUE: Multidetector CT imaging of the chest was performed without the use of intravenous contrast. IV contrast: None. A dose lowering technique was used consistent with the principles of ALARA (as low as reasonably achievable). COMPARISON: 10/14/2016. CT DOSE (mGy.cm): The estimated cumulative dose is 1032.45 mGy.cm. FINDINGS: Bench Grinder topogram: Surgical clips noted in the region of the left renal fossa. On soft tissue windows, normal thyroid and thoracic inlet. No axillary, supraclavicular, hilar, or mediastinal lymphadenopathy. Normal aorta. Normal heart size. Mild coronary artery calcification. No pericardial or pleural effusion. Upper abdomen demonstrates a focal fluid collection in the left renal/suprarenal fossa intimately associated with the pancreatic tail. This is unchanged in size and appearance from prior exam. Numerous associated surgical clips. Solid soft tissue exophytic region along the posterior aspect of the right upper pole. Please see separately dictated CT of the abdomen and pelvis. On lung windows, calcified granuloma at the right apex with minimal right apical scarring. Stable 5 mm nodule in the right middle lobe (series 6 image 216). Punctate nodule in the left upper lobe (series 2 image 23). Additional nodule in the left lower lobe measuring 3 mm (series 2 image 26) series. These are unchanged. No new nodule. Airways patent. On bone windows, bone island noted in a right lateral rib. No destructive osseous lesion. IMPRESSION: 1. No evidence of intrathoracic metastatic disease. Stable pulmonary nodules measuring up to 5 mm. 2. Apparent solid lesion at the right upper pole of the kidney. Please see separately dictated CT of abdomen and pelvis for further findings. Electronically signed by: Anselmo Barboza M.D. 12/15/2016 10:25 AM Dictated Date/Time: 12/15/2016 10:17 AM
== END | disposition home or self-care (01) ==
LOC: C.CTS 09:35
PROVIDERS: ATTEND Nurse Practitioner Family
DX: C64.2 Malignant neoplasm of left kidney, except renal pelvis (principal)

== ENCOUNTER → 2016-12-18 | Outpatient (CLI) | payer BC ==
[~2016-12-18] MED LIST changes: -OPTIRAY 320 IV PRN
[2016-12-18 12:07] LABS: HEMATOCRIT 40.2 % (42-52); MEAN CELL VOLUME 97.1 fL (80-100); MEAN CORPUSCULAR HEMOGLOBIN 32.1 pg (25-34); MEAN CORPUSCULAR HGB CONC 33.1 g/dl (32-36); RED BLOOD COUNT 4.14 M/uL (4.7-6.1)
[2016-12-18 12:23] LABS: ALT/SGPT 30 U/L (12-78); AST/SGOT 23 U/L (15-37); BLOOD UREA NITROGEN 21 mg/dl (7-18); BUN/CREATININE RATIO 10.2 (10-20); CALCIUM 8.4 mg/dl (8.5-10.1); CARBON DIOXIDE 33 mmol/L (21-32); CHLORIDE 106 mmol/L (98-107); GLUCOSE 90 mg/dl (70-99); POTASSIUM 4.1 mmol/L (3.5-5.1); SODIUM 142 mmol/L (136-145)
[2016-12-18 12:26] LABS: ALB/GLOB RATIO 1.1 (0.9-2); ALKALINE PHOSPHATASE 92 U/L (45-117)
[2016-12-18 12:45] LABS: PLATELET COUNT 72 K/uL (130-400)
[2016-12-18 12:55] LABS: COMPLETE YES; LYMPH % 41.8 %; LYMPH ABS # 0.92 K/uL (1.2-3.4); MONO % 7.3 %; NEUT % 45.9 %
== END | disposition home or self-care (01) ==
LOC: C.LAB1850 10:33
PROVIDERS: ATTEND Nurse Practitioner Family
DX: C64.2 Malignant neoplasm of left kidney, except renal pelvis (principal)

== ENCOUNTER → 2017-03-10 | Outpatient (CLI) | payer BC ==
--- NOTE | 2017-03-10 14:20 | DIAGNOSTIC IMAGING REPORT ---
CT SCAN OF THE ABDOMEN AND PELVIS WITHOUT IV CONTRAST CLINICAL HISTORY: Renal cell carcinoma. COMPARISON STUDY: Prior abdominal CT scans, most recently dated 12/15/2016. TECHNIQUE: CT scan of the abdomen and pelvis is performed from the lung bases to the proximal femora. Images are reviewed in the axial, sagittal, and coronal planes. IV contrast was not administered for this examination due to solitary kidney. Note that assessment is suboptimal without IV contrast. Oral contrast was utilized. Automated dose control exposure was utilized. FINDINGS: Lung bases: The heart is normal in size and without pericardial effusion. Lung bases are clear. There is a tiny hiatal hernia. Liver: The unenhanced liver is normal in size, contour, and attenuation. There is no intrahepatic biliary ductal dilatation. A 1.8 cm focus of low-attenuation is again seen in the left lobe on image #79. Gallbladder: Unremarkable. Spleen: Normal in size and attenuation. Pancreas: Unenhanced pancreas is atrophic. A low-attenuation lesion in the pancreatic tail seen on image #89 has continued to decrease in size, now measuring 1.3 cm (previously measured 2.1 cm). Adrenal glands: The right adrenal gland is normal in appearance. The left adrenal gland is not identified and presumed surgically absent. Kidneys: The left kidney is surgically absent. There is no evidence of recurrent/residual soft tissue lesion in the operative bed. A fluid collection in the nephrectomy bed between the pancreatic tail and the spleen is similar to previous and measures 7.4 x 4.4 cm. The right kidney demonstrates mild cortical atrophy and is without hydronephrosis. There are no renal calculi identified. A 1.5 cm cyst arising from the right upper pole and a subcentimeter hyperdense lesion the right upper pole likely representing a complex cyst are similar to previous. Parapelvic cysts are unchanged. Abdominal vasculature: The abdominal aorta is normal in course and caliber noting moderate atherosclerotic calcification. Bowel: The small bowel and colon are normal in course and caliber. The appendix is well-visualized and normal. Peritoneum: There is no intraperitoneal free air or abdominal ascites. Lymphadenopathy: None. Pelvic viscera: The prostate gland is enlarged, measuring 5.3 cm transverse diameter. The bladder is normal as visualized. Skeletal structures: The skeletal structures are osteopenic. There is mild lumbosacral spondylosis. No lytic or blastic lesions are seen. Bone islands in the right iliac wing and the right 11th rib are unchanged. IMPRESSION: 1. The low-attenuation lesion (suspected metastasis) in the pancreatic tail has decreased in size from 12/15/2016. 2. No new foci of metastatic disease are suspected in the abdomen or pelvis. 3. Again seen are postoperative changes from left nephrectomy and left adrenalectomy. A simple appearing fluid collection within the operative bed is unchanged from previous. 4. Unchanged appearance of a 1.8 cm focus of subcapsular low-attenuation in the left lobe of the liver, possibly representing focal fatty infiltration. 5. Additional changes as above. Electronically signed by: Patrick Blankenship M.D. 03/10/2017 2:18 PM Dictated Date/Time: 03/10/2017 2:02 PM
--- NOTE | 2017-03-10 14:27 | DIAGNOSTIC IMAGING REPORT ---
(CHEST) THORAX WITHOUT CT DOSE: 1051.30 mGy.cm HISTORY: Pulmonary nodule. Renal cell carcinoma. C64.2 TECHNIQUE: Multiaxial CT images of the chest were performed without contrast. A dose lowering technique was utilized adhering to the principles of ALARA. COMPARISON: 12/15/2016 FINDINGS: The hilar and mediastinal regions are unremarkable. No significant adenopathy. Small nodular density at the anterior and posterior aspect of the right upper lobe transaxial image 12 unchanged from the prior study. Minimal scattered additional micronodular area is unaltered. No evidence for new interval or progressive pulmonary nodule. Lungs otherwise are clear. Limited evaluation the upper abdomen show postoperative changes of the left renal fossa with associated post operative seroma unchanged. No new or interval finding is appreciated. IMPRESSION: Stable evaluation of the chest. Unchanging micronodule changes. No new or interval process. The above report was generated using voice recognition software. It may contain grammatical, syntax or spelling errors. Electronically signed by: Uriel Vanegas M.D. 03/10/2017 2:26 PM Dictated Date/Time: 03/10/2017 2:21 PM
[2017-03-10 14:48] LABS: HEMATOCRIT 40.7 % (42-52); MEAN CELL VOLUME 95.8 fL (80-100); MEAN CORPUSCULAR HEMOGLOBIN 33.4 pg (25-34); MEAN CORPUSCULAR HGB CONC 34.9 g/dl (32-36); RED BLOOD COUNT 4.25 M/uL (4.7-6.1); WHITE BLOOD COUNT 4.13 K/uL (4.8-10.8)
[2017-03-10 15:30] LABS: MEAN PLATELET VOLUME 10.6 fL (7.4-10.4); PLATELET COUNT 80 K/uL (130-400)
[2017-03-10 15:31] LABS: BASO % 0.2 %; BASO ABS # 0.01 K/uL (0-0.2); COMPLETE YES; EOS % 3.1 %; IG% 0.2 %; LYMPH ABS # 1.65 K/uL (1.2-3.4); MONO % 5.3 %; NEUT % 51.2 %
[2017-03-10 16:17] LABS: ALT/SGPT 26 U/L (12-78); AST/SGOT 20 U/L (15-37); BLOOD UREA NITROGEN 19 mg/dl (7-18); BUN/CREATININE RATIO 10.2 (10-20); CALCIUM 8.3 mg/dl (8.5-10.1); CARBON DIOXIDE 28 mmol/L (21-32); CHLORIDE 106 mmol/L (98-107); CREATININE 1.88 mg/dl (0.60-1.40); GLUCOSE 77 mg/dl (70-99); POTASSIUM 3.9 mmol/L (3.5-5.1); SODIUM 142 mmol/L (136-145)
[2017-03-10 16:19] LABS: ALB/GLOB RATIO 1.2 (0.9-2); ALKALINE PHOSPHATASE 88 U/L (45-117)
== END | disposition home or self-care (01) ==
LOC: C.CTS 13:22
PROVIDERS: ATTEND Nurse Practitioner Family
DX: C64.2 Malignant neoplasm of left kidney, except renal pelvis (principal)

== ENCOUNTER → 2017-06-15 | Outpatient (CLI) | payer BC ==
--- NOTE | 2017-06-15 16:10 | DIAGNOSTIC IMAGING REPORT ---
CT SCAN OF THE ABDOMEN AND PELVIS WITHOUT CONTRAST CLINICAL HISTORY: RENAL Cancer, malignant NEOPLASM OF BRAIN, METASTASIS TO PANCREAS COMPARISON STUDY: 03/10/2017 TECHNIQUE: CT scan of the abdomen and pelvis was performed from the lung bases to the proximal femurs. Images are reviewed in the axial, sagittal, and coronal planes. IV contrast was not administered for this examination. A dose lowering technique was utilized adhering to the principles of ALARA. CT DOSE: 1140.83 mGy.cm FINDINGS: Lower chest: Underlying emphysema is suspected. There are no pleural effusions. There is no focal pulmonary consolidation. Liver: There is a subtle 16 mm hypodensity within the medial segment left hepatic lobe, similar to the preceding study. Gallbladder: Unremarkable. Spleen: Normal in size and attenuation. Pancreas: The previously delineated hypodense lesion within the pancreatic tail is difficult to discern on the current study. Adrenal glands: The right adrenal gland appears normal. No left adrenal masses are visualized within the left adrenal gland is difficult to discern Kidneys: The left kidney is surgically absent. There is a 6.5 cm fluid collection in the region of the operative bed. This abuts the pancreatic tail and medial aspect of the spleen. There is mild fullness of the right renal collecting system, unchanged from the preceding study. No ureteral calculi are visualized. There is a stable small contour deformity involving the upper pole. This cannot be further characterized on noncontrast study. Bowel: There are no transition zones indicate bowel obstruction. The appendix appears normal. There is no acute diverticulitis. Peritoneum: There is no intraperitoneal free air or abdominal ascites. This tiny fat-containing umbilical hernia Vasculature: The abdominal aorta is normal in course and caliber. Adenopathy: None. Pelvic viscera: The prostate remains mildly enlarged. Skeletal structures: There is stable 17 mm sclerotic lesion involving the right iliac bone. There is a stable 8 mm sclerotic lesion involving the left iliac bone. There is a stable sclerotic lesion involving the right posterior 11th rib. IMPRESSION: 1. No evidence of progressive disease 2. The previously identified low-attenuation lesion within the pancreatic tail is difficult to discern 3. Postsurgical changes of left nephrectomy with a persistent fluid collection within the operative bed 4. Stable subtle nonspecific 18 mm hypodensity within the left lobe the liver 5. No evidence of bowel obstruction. No evidence of free air. Electronically signed by: Clyde Reyes M.D. 06/15/2017 4:09 PM Dictated Date/Time: 06/15/2017 4:00 PM
--- NOTE | 2017-06-15 16:11 | DIAGNOSTIC IMAGING REPORT ---
(CHEST) THORAX WITHOUT CT DOSE: HISTORY: RENAL CANCER,MALIGNANT NEOPLASM OF BRAIN, METASTASIS TO PANC TECHNIQUE: Multiaxial CT images of the chest were performed without contrast. A dose lowering technique was utilized adhering to the principles of ALARA. COMPARISON: Chest CT 03/10/2017. FINDINGS: Stable 2 mm nodule within the superior segment of left lower lobe abutting the aorta. Mild emphysema. No new focal lung consolidations. The central airways are patent. Stable right upper lobe irregular nodules on images 61 and 63. These remain subcentimeter in size. No new nodules identified. Stable metallic fiducial marker within the right lung apex adjacent to one of the irregular nodular densities. No suspicious osseous lesions identified. No mediastinal or hilar lymphadenopathy. Normal caliber thoracic aorta. The heart is normal in size. Please refer to the dedicated abdomen and pelvis CT performed same day for further evaluation of the abdominal structures. IMPRESSION: 1. No change compared to the prior study. 2. Small irregular nodular densities within the right upper lobe are again noted. No new pulmonary nodules. Electronically signed by: Milo Cruz M.D. 06/15/2017 4:10 PM Dictated Date/Time: 06/15/2017 3:58 PM
[2017-06-15 16:22] LABS: EOS % 2.2 %; EOS ABS # 0.06 K/uL (0-0.5); HEMATOCRIT 39.3 % (42-52); HEMOGLOBIN 13.1 g/dL (14.0-18.0); LYMPH % 38.6 %; LYMPH ABS # 1.07 K/uL (1.2-3.4); MEAN CORPUSCULAR HGB CONC 33.3 g/dl (32-36); MEAN PLATELET VOLUME 10.1 fL (7.4-10.4); MONO % 10.5 %; MONO ABS # 0.29 K/uL (0.11-0.59); NEUT % 48.7 %; NEUT ABS # 1.35 K/uL (1.4-6.5); PLATELET COUNT 124 K/uL (130-400); RED CELL DISTRIBUTION WIDTH CV 14.8 % (11.5-14.5); RED CELL DISTRIBUTION WIDTH SD 53.7 fL (36.4-46.3); WHITE BLOOD COUNT 2.77 K/uL (4.8-10.8)
[2017-06-15 16:51] LABS: ALBUMIN 3.6 gm/dl (3.4-5.0); ALT/SGPT 28 U/L (12-78); AST/SGOT 16 U/L (15-37); BLOOD UREA NITROGEN 26 mg/dl (7-18); CALCIUM 8.7 mg/dl (8.5-10.1); CARBON DIOXIDE 32 mmol/L (21-32); CREATININE 1.64 mg/dl (0.60-1.40); GLUCOSE 98 mg/dl (70-99); POTASSIUM 3.9 mmol/L (3.5-5.1); SODIUM 139 mmol/L (136-145); TOTAL PROTEIN 7.2 gm/dl (6.4-8.2)
[2017-06-15 16:54] LABS: ALKALINE PHOSPHATASE 84 U/L (45-117)
== END | disposition home or self-care (01) ==
LOC: C.CTS 15:13
PROVIDERS: ATTEND Nurse Practitioner Family
DX: C64.2 Malignant neoplasm of left kidney, except renal pelvis (principal); C79.31 Secondary malignant neoplasm of brain; C78.89 Secondary malignant neoplasm of other digestive organs; Z90.5 Acquired absence of kidney; R91.8 Other nonspecific abnormal finding of lung field

== ENCOUNTER → 2017-10-02 | Outpatient (CLI) | payer BC ==
--- NOTE | 2017-10-02 12:25 | DIAGNOSTIC IMAGING REPORT ---
(CHEST) THORAX WITHOUT, ABD/PELVIS ORAL CONT ONLY CT DOSE: 1404.28 mGy.cm CLINICAL HISTORY: 66 years-old Male with RENAL CA, PT TO HAVE LABS AFTER PLEASE. Follow-up study in a patient with history of prior renal cell carcinoma left-sided nephrectomy. TECHNIQUE: Multiaxial CT images of the chest, abdomen and pelvis were performed without contrast. A dose lowering technique was utilized adhering to the principles of ALARA. COMPARISON: CT chest, abdomen and pelvis 06/15/2017 FINDINGS: CT CHEST: Homogeneous thyroid. No pathologically enlarged lymph nodes. Calcified lymph nodes are compatible with prior granulomatous disease. Heart is normal in size without pericardial effusion. Coronary arterial calcifications are noted. No aortic aneurysm. Mild atherosclerosis of the thoracic aorta. No pneumothorax or pleural effusion. Calcific granulomata about the lungs. Irregular nodular and linear densities about the right upper lobe are unchanged suggesting areas of pleural-parenchymal scarring. There is mild bilateral bronchial wall thickening suggesting bronchitis. Subsegmental linear consolidative and groundglass opacities about the lung bases suggest areas of atelectasis or scarring. Minimal subpleural bleb formation of the lung apices. Minimal groundglass densities about the superior segments of the lower lobes reflect areas of atelectasis. Central airways are patent. No suspicious pulmonary nodules or masses to suggest metastatic disease. Soft tissues of the chest are unremarkable. The bones appear intact without suspicious lytic or blastic bony lesions. 7 mm sclerotic focus about the anterior fifth rib with adjacent linear 5 mm sclerotic focus of the same rib appears unchanged from prior study suggesting bone islands. Additional sclerotic lesion involves the posterior aspect of the right 11th rib which is also stable suggesting bone island. CT ABDOMEN/PELVIS: No pneumatosis or pneumoperitoneum identified. Hepatic steatosis. Previously noted subtle nonspecific lesion of the left hepatic lobe is unchanged, 1.6 cm. Spleen, gallbladder and right adrenal gland are unremarkable. Moderate generalized pancreatic atrophy. The left adrenal gland is not seen and may be surgically absent. Mild nonspecific right-sided perinephric stranding. Water attenuating lesions about the superior pole right kidney suggests renal cysts measuring up to 1.4 cm. Additionally, there is an ill-defined 8 mm slightly hyperattenuating lesion of the interpolar right kidney which is unchanged suggesting proteinaceous or hemorrhagic cyst. Renal sinus cysts are also seen on the right without renal calculi or obstructive uropathy. Mild prostamegaly. Urinary bladder is unremarkable. Small bilateral fat filled inguinal hernias. Postoperative changes from prior left-sided nephrectomy. Chronic fluid collection of the nephrectomy bed is again seen, 6.8 x 4.3 cm, previously measuring 6.7 x 4.5 cm. Mild to moderate atherosclerosis of the aorta without aneurysm. No bulky adenopathy identified. There is no bowel obstruction or focal bowel wall thickening. No ascites or mesenteric inflammatory changes. Normal appendix. Soft tissues are within normal limits. The bones appear mildly demineralized. 1.4 cm sclerotic lesion of the right iliac bone is unchanged suggesting probable bone island. Moderate intervertebral disc space narrowing with disc osteophyte complex relation at L5-S1. IMPRESSION: 1. No acute intrathoracic, intra-abdominal or intrapelvic abnormality identified. 2. Prior left-sided nephrectomy with unchanged chronic fluid collection about the nephrectomy bed. 3. No pathologic adenopathy or evidence of metastatic disease. 4. Additional incidental findings as above. Electronically signed by: Quinton Mishra M.D. 10/02/2017 12:23 PM Dictated Date/Time: 10/02/2017 12:07 PM
[2017-10-02 12:44] LABS: HEMOGLOBIN 14.2 g/dL (14.0-18.0); MEAN CELL VOLUME 96.3 fL (80-100); MEAN CORPUSCULAR HEMOGLOBIN 32.6 pg (25-34); MEAN CORPUSCULAR HGB CONC 33.8 g/dl (32-36); PLATELET COUNT 93 K/uL (130-400); RED CELL DISTRIBUTION WIDTH CV 14.6 % (11.5-14.5); RED CELL DISTRIBUTION WIDTH SD 51.8 fL (36.4-46.3); WHITE BLOOD COUNT 4.14 K/uL (4.8-10.8)
[2017-10-02 13:15] LABS: EOS % 1.7 %; EOS ABS # 0.07 K/uL (0-0.5); IG# 0.01 K/uL (0.00-0.02); LYMPH % 33.3 %; LYMPH ABS # 1.38 K/uL (1.2-3.4); MONO % 7.7 %; MONO ABS # 0.32 K/uL (0.11-0.59); NEUT % 57.1 %; NEUT ABS # 2.36 K/uL (1.4-6.5)
[2017-10-02 13:22] LABS: ALBUMIN 3.6 gm/dl (3.4-5.0); ALKALINE PHOSPHATASE 94 U/L (45-117); ALT/SGPT 27 U/L (12-78); AST/SGOT 28 U/L (15-37); BLOOD UREA NITROGEN 21 mg/dl (7-18); CALCIUM 8.7 mg/dl (8.5-10.1); CARBON DIOXIDE 29 mmol/L (21-32); CREATININE 2.18 mg/dl (0.60-1.40); GLUCOSE 71 mg/dl (70-99); POTASSIUM 4.1 mmol/L (3.5-5.1); SODIUM 139 mmol/L (136-145); TOTAL PROTEIN 6.7 gm/dl (6.4-8.2)
== END | disposition home or self-care (01) ==
LOC: C.CTS 11:51
PROVIDERS: ATTEND Nurse Practitioner Family
DX: C64.2 Malignant neoplasm of left kidney, except renal pelvis (principal); C79.31 Secondary malignant neoplasm of brain

== ENCOUNTER → 2017-12-31 | Outpatient (CLI) | payer BC ==
[2017-12-31 13:03] LABS: HEMATOCRIT 44.7 % (42-52); HEMOGLOBIN 14.8 g/dL (14.0-18.0); MEAN CELL VOLUME 97.2 fL (80-100); MEAN CORPUSCULAR HEMOGLOBIN 32.2 pg (25-34); MEAN CORPUSCULAR HGB CONC 33.1 g/dl (32-36); RED CELL DISTRIBUTION WIDTH CV 14.6 % (11.5-14.5); RED CELL DISTRIBUTION WIDTH SD 51.4 fL (36.4-46.3); WHITE BLOOD COUNT 3.13 K/uL (4.8-10.8)
[2017-12-31 13:14] LABS: MEAN PLATELET VOLUME 10.2 fL (7.4-10.4); PLATELET COUNT 79 K/uL (130-400)
[2017-12-31 13:18] LABS: ALBUMIN 3.5 gm/dl (3.4-5.0); ALKALINE PHOSPHATASE 93 U/L (45-117); ALT/SGPT 24 U/L (12-78); AST/SGOT 20 U/L (15-37); BLOOD UREA NITROGEN 21 mg/dl (7-18); CALCIUM 8.3 mg/dl (8.5-10.1); CARBON DIOXIDE 30 mmol/L (21-32); CREATININE 2.34 mg/dl (0.60-1.40); GLUCOSE 125 mg/dl (70-99); POTASSIUM 4.2 mmol/L (3.5-5.1); SODIUM 138 mmol/L (136-145); TOTAL PROTEIN 6.8 gm/dl (6.4-8.2)
[2017-12-31 13:22] LABS: BASO % 0.3 %; BASO ABS # 0.01 K/uL (0-0.2); EOS % 3.8 %; EOS ABS # 0.12 K/uL (0-0.5); LYMPH ABS # 1.22 K/uL (1.2-3.4); MONO % 5.8 %; MONO ABS # 0.18 K/uL (0.11-0.59); NEUT % 51.1 %
== END | disposition home or self-care (01) ==
LOC: C.LAB 11:16
PROVIDERS: ATTEND Nurse Practitioner Family
DX: C64.2 Malignant neoplasm of left kidney, except renal pelvis (principal); C79.31 Secondary malignant neoplasm of brain

== ENCOUNTER 2021-01-09 08:45 | Inpatient (IN) ==
[2021-01-09 10:07] LABS: Basophils # (auto) 0.01 K/uL (0-0.2); Basophils % (auto) 0.3 %; Eosinophils # (auto) 0.05 K/uL (0-0.5); Eosinophils % (auto) 1.6 %; Hematocrit (blood only) 39.2 % (42-52); Hemoglobin 12.2 g/dL (14.0-18.0); Lymphocytes # (auto) 0.89 K/uL (1.2-3.4); Lymphocytes % (auto) 27.8 %; Mean Corpuscular Hemoglobin 31.9 pg (25-34); Mean Corpuscular Hgb Conc 31.1 g/dL (32-36); Mean Corpuscular Volume 102.6 fL (80-100); Mean Platelet Volume 10.1 fL (7.4-10.4); Monocytes # (auto) 0.23 K/uL (0.11-0.59); Monocytes % (auto) 7.2 %; Neutrophils # (auto) 2.02 K/uL (1.4-6.5); Neutrophils % (auto) 63.1 %; Platelet Count 138 K/uL (130-400); RDW Coefficient of Variation 16.8 % (11.5-14.5); RDW Standard Deviation 63.5 fL (36.4-46.3); Red Blood Count 3.82 M/uL (4.7-6.1)
--- NOTE | 2021-01-09 10:11 | XRay Report ---
SINGLE VIEW CHEST CLINICAL HISTORY: Atypical chest pain. FINDINGS: An AP, portable, upright chest radiograph is compared to study dated 05/14/2020 and correla xuan with chest CT dated 10/12/2020. The cardiomediastinal silhouette is unremarkable noting atheroscle rotic calcification of the thoracic aorta. Emphysema with chronic interstitial thickening and nodular ity is similar to previous. There is no airspace consolidation typical for pneumonia or large pleural effusion. Scarring/atelectasis is noted at the lung bases. A nipple shadow projects over the left kae ng base. A metallic foreign body/fiducial is noted in the right upper lung. No pneumothorax is seen. The skeletal structures are osteopenic. The bony thorax is grossly intact. Degenerative change is see n throughout the thoracic spine. A bone island is again noted in the right anterior fifth rib. IMPRESSION: Emphysematous change with no acute cardiopulmonary abnormality. ACT 112: Negative or not required by law. Electronically signed by: Patrick Blankenship M.D. 01/09/2021 10:10 AM
[2021-01-09 10:17] LABS: Partial Thromboplastin Ratio 0.9; Partial Thromboplastin Time 23.1 Seconds (21.0-31.0); Prothrombin Time 9.8 Seconds (9.0-12.0)
[2021-01-09 10:27] LABS: Alanine Aminotransferase 15 U/L (12-78); Aspartate Aminotransferase 14 U/L (15-37); Blood Urea Nitrogen 35 mg/dl (7-18); Calcium 8.9 mg/dl (8.5-10.1); Carbon Dioxide 28 mmol/L (21-32); Chloride 111 mmol/L (98-107); Creatinine Clr Calc Pharmacy 25.7 ml/min; Est GFR (African American) 26.3 ml/min; Est GFR (Non-African American) 22.7 ml/min; Glucose 101 mg/dl (70-99); Potassium 5.3 mmol/L (3.5-5.1); Sodium 144 mmol/L (136-145)
[2021-01-09 10:32] LABS: Alkaline Phosphatase 88 U/L (45-117); Bilirubin,Total 0.7 mg/dl (0.2-1); Globulin 2.9 gm/dl (2.5-4.0); Total Protein 5.9 gm/dl (6.4-8.2); Troponin I < 0.015 ng/ml (0-0.045)
[2021-01-09] MEDS: SODIUM CHLORIDE 0.9% 500 ML IV SCH ×3 (12:42→21:59)
[2021-01-09 12:54] LABS: Magnesium 1.5 mg/dl (1.8-2.4); Phosphorus 3.5 mg/dl (2.5-4.9)
--- NOTE | 2021-01-09 12:59 | CT Scan Report ---
CT chest diagnostic wo con CT DOSE: 777.59 mGy.cm HISTORY: Shortness of breath h/o renal cell carcinoma, atypical chest pain with exertion TECHNIQUE: Multiaxial CT images of the chest were performed without contrast. A dose lowering techni que was utilized adhering to the principles of ALARA. COMPARISON: Chest 10/04/2020. FINDINGS: Mild emphysema. No pneumothorax. No pleural effusions. The central airways are patent. Stab le linear and patchy groundglass densities within the right upper lobe anteriorly. This favors scarri ng. Stable 7 mm and 5 mm irregular nodules within the right lung apex on image 55. Stable 4 mm ground glass nodule within left upper lobe on image 62. Punctate metallic fiducial marker within the right l sp apex. No new pulmonary nodules. No focal lung consolidations to suggest pneumonia. Stable sclerot ic foci within the right ribs. Please refer to same day abdomen and pelvis CT for further evaluation of the abdominal structures. Normal esophagus. No mediastinal or hilar lymphadenopathy. The heart is normal in size. Normal caliber thoracic aorta. There is mild calcified plaque within the thoracic aor ta and coronary arteries. IMPRESSION: 1. No significant change compared to the prior study. 2. Stable irregular right apical pulmonary nodules measuring 7 and 5 mm. There are a few additional s cattered subcentimeter pulmonary nodules which are also stable. No new pulmonary nodules. 3. Mild emphysema. 4. Please refer to same day abdomen and pelvis CT for further evaluation of the abdominal structures. ACT 112: Negative or not required by law. Electronically signed by: Milo Cruz M.D. 01/09/2021 12:58 PM
--- NOTE | 2021-01-09 13:02 | CT Scan Report ---
CT OF THE ABDOMEN AND PELVIS WITHOUT CONTRAST CLINICAL HISTORY: h/o RCC, CP with exertion COMPARISON STUDY: CT of the abdomen and pelvis October 12, 2020. TECHNIQUE: Axial images of the abdomen and pelvis were obtained without IV contrast. Images were revi ewed in the axial, sagittal, and coronal planes. Automated exposure control was utilized for the rebecca dy. A dose lowering technique was utilized adhering to the principles of ALARA. FINDINGS: Please note that the chest CT will be reported separately. No pneumatosis, free air or port al venous gas is present. Evaluation of the abdomen and pelvis is suboptimal on this unenhanced exam. The liver, spleen, adrenal glands and pancreas are unremarkable. There is no right hydronephrosis. N ote is made of a 2.4 cm lesion arising from the upper pole of the right kidney. Attenuation on this u nenhanced exam is 27 Hounsfield units. This is suboptimally assessed on this examination. A 1.[address] attenuation right renal lesion likely reflects a cyst. Left kidney is surgically absent. A 4.6 cm left nephrectomy bed fluid collection has slightly decreased in size since prior examination. No john dence for a bowel obstruction. There is no lymphadenopathy. The appendix is normal. There is sigmoid diverticulosis without evidence for acute diverticulitis. Several skeletal sclerotic lesions are unch anged. These are likely benign. IMPRESSION: 1. No acute process within the abdomen or pelvis on unenhanced exam. 2. Status post left nephrectomy. Slight decrease in size of the left nephrectomy bed fluid collection . 3. Right upper pole renal lesion which measures at least 2.4 cm. This is suboptimally assessed on thi s unenhanced exam. This measures above water attenuation and may reflect a proteinaceous cyst or vira d renal lesion. Nonemergent renal ultrasound is recommended for further evaluation. ACT 112: Negative or not required by law. Electronically signed by: Kavin Tavera M.D. 01/09/2021 1:00 PM
--- NOTE | 2021-01-09 14:35 | Emergency Department Note ---
Impression & Plan Exertional chest pain, Chronic renal insufficiency, Metastatic renal cell carcinoma ED Provider Note NAME: LEONARD AUSTIN AGE: 70 SEX: M ARRIVES VIA: Walk-In INFORMANT: Patient, ED PROVIDER(S): Kenny Mcintosh MD CHIEF COMPLAINT: Chest pain PLAN: Disposition: Admit MEDICAL DECISION MAKING: The patient is a pleasant 70-year-old gentleman with a past medical history of hypertension, metastatic renal cell carcinoma status post nephrectomy, CKD, sarcoidosis who presents to the emergency department accompanied by his for evaluation of new onset chest pressure/pain that is consistently occurring with exertion. He reports he will get some improvement by taking his PPI but then notes that the pain/pressure returns with minimal exertion. At this time he denies any pain. He denies any recent new cough, congestion, nausea, vomiting, diarrhea or urinary symptoms. He reports he is on oral immunotherapy to control his renal cancer she reports is stable. Patient's reports that he did take an aspirin this morning. On arrival the patient is no acute distress, afebrile stable vital signs. EKG without overt acute ischemia. Chest x-ray without acute cardiopulmonary process. WBC, H/H similar to prior. Platelets approximated and improved from prior. Chemistry without metabolic acidosis. Creatinine 2.7 within prior range of values in setting of CKD and improved from September. Magnesium 1.5 and electrolytes otherwise unremarkable. Troponin negative/undetectable. BNP within normal limits and so PE less likely. TSH is 0.075 however free T4 within normal limits. COVID-[address] of the chest and abdomen pelvis negative for acute process. Note is made of stable pulmonary nodules. Given the patient 's new onset exertional chest pain reasonable to admit the patient for further evaluation. The patient and his at bedside are agreeable with this plan. Case was discussed JONATHON Camarillo and Dr. Monroe [facility] hospitalist, who will evaluate the patient for admission. Triage Nursing notes reviewed and agree them. Prior medical records reviewed Vital Signs: reviewed and remarkable for no significant abnormalities Differential diagnosis: Cardiac ischemia, aortic dissection, pulmonary embolism, pneumothorax, p neumonia, pericarditis, myocarditis, esophageal rupture, GERD, cholecystitis, pancreatitis, musculoskeletal, as well as other pathologies. ER treatment provided: See below. Diagnostics interpreted by me: ECG: Normal sinus rhythm, 84 bpm, no ectopy, no overt ST elevation or depression, QTC 423, QRS 84. Cardiac Monitoring: An order for continuous cardiac monitoring was placed and demonstrated Normal sinus rhythm, 84 bpm, no ectopy. Laboratory studies: See below Imaging studies: See below Consultation(s): Case was discussed JONATHON Camarillo and Dr. Monroe, [facility] hospitalist, who will evaluate the patient for admission. HPI: The patient is a pleasant 70-year-old gentleman with a past medical history of hypertension, metastatic renal cell carcinoma status post nephrectomy, CKD, sarcoidosis who presents to the emergency department accompanied by his for evaluation of new onset chest pressure/pain that is consistently occurring with exertion. He reports he will get some improvement by taking his PPI but then notes that the pain/pressure returns with minimal exertion. At this time he denies any pain. He denies any recent new cough, congestion, nausea, vomiting, diarrhea or urinary symptoms. He reports he is on oral immunotherapy to control his renal cancer she reports is stable. Patient's reports that he did take an aspirin this morning. ROS: See above HPI for pertinent positives & negatives. A total of 10 systems reviewed and were otherwise negative. PAST MEDICAL HISTORY:See Below PAST SURGICAL HISTORY:See Below FAMILY HISTORY:See Below SOCIAL HISTORY:See Below HOME MEDICATIONS:See Below ALLERGIES:See Below VITALS:See Below PHYSICAL EXAMINATION: GENERAL: Awake, alert, well-appearing, in no distress HENT: Normocephalic, atraumatic. Oropharynx with dry mucous membranes and otherwise unremarkable. EYES: Normal conjunctiva. Sclera non-icteric. NECK: Supple. No nuchal rigidity. FROM. No JVD. RESPIRATORY: Clear to auscultation. CARDIAC: Regular rate, normal rhythm. Extremities warm and well perfused. Pulses equal. ABDOMEN: Soft, non-distended. No tenderness to palpation. No rebound or guarding. No masses. RECTAL: Deferred. MUSCULOSKELETAL: Chest examination reveals no tenderness. The back is symmetrical on inspection without obvious abnormality. There is no CVA tenderness to palpation. No joint edema. LOWER EXTREMITIES: Calves are equal size bilaterally and non-tender. No edema. No discoloration. NEURO: Normal sensorium. No sensory or motor deficits noted. SKIN: No rash or jaundice noted. Kenny Mcintosh MD Past Med/Surg History Medical History (Updated 01/10/21 @ 02:58 by Kenny Mcintosh MD) Anemia Asthma Chronic renal insufficiency CVA (cerebral vascular accident) Depression with anxiety Herpes simplex type 1 infection History of nephrectomy, unilateral History of SCC (squamous cell carcinoma) of skin Hypertension Hypothyroidism Intracranial hemorrhage Kidney stones Lung nodule Metastatic renal cell carcinoma Nephrolithiasis Paresthesias Renal cell carcinoma (01/19/14) S/p nephrectomy Sarcoidosis Surgical History H/O craniotomy History of nephrectomy Family History Father , 63 yo Stroke Social History Smoking Status: Never smoker Do You Dip or Chew Tobacco: Yes; Tobacco Cessation Education Requested by Patient: No Hx Alcohol Use: No Hx Substance Use: No Preferred Language: Indonesian Communication Ability: Effective Glove Presser Required: No Beliefs That Will Affect Care: None Current Living Situation: Spouse Other Information That Helps Us Care for You: No Feels Safe at Home: Yes Safety Concerns: Feels Safe At This Time Assistive Devices: Glasses and Hearing Aid - Bilateral Allergies Allergies Allergy/AdvReac Type Severity Reaction Status Date / Time No Known Drug Allergies Allergy Unknown ` Verified 01/09/21 11:16 Home Meds Home Medications Medication Instructions Recorded Confirmed cetirizine 10 mg tablet (Zyrtec) 10 mg PO DAILY PRN 05/14/18 01/09/21 fluticasone propionate 50 1 spray INTRANASAL BID PRN 05/14/18 01/09/21 mcg/actuation nasal spray,suspension (Flonase Allergy Relief) melatonin 5 mg tablet 5 mg PO HS 05/14/18 01/09/21 tramadol 50 mg tablet 50 mg PO Q6H PRN 05/14/18 01/09/21 ondansetron HCl 8 mg tablet 8 mg PO DAILY PRN tab 01/12/19 01/09/21 valacyclovir 500 mg tablet 500 mg PO DAILY PRN 04/01/19 01/09/21 lorazepam 0.5 mg tablet 0.5 mg PO HS 05/14/20 01/09/21 pantoprazole 40 mg tablet,delayed 40 mg PO QAM 07/23/20 01/09/21 release sunitinib 50 mg capsule (Sutent) 50 mg PO DIRECTED 07/23/20 01/09/21 aspirin 81 mg tablet,delayed 81 mg PO QAM 01/09/21 01/09/21 release cyanocobalamin (vitamin B-12) 100 100 mcg PO QAM 01/09/21 01/09/21 mcg tablet (Vitamin B-12) hydrochlorothiazide 25 mg tablet 25 mg PO QAM 01/09/21 01/09/21 levothyroxine 125 mcg tablet 125 mcg PO DAILYBB 01/09/21 01/09/21 losartan 100 mg tablet 100 mg PO QAM 01/09/21 01/09/21 Previous Rx's Medication Instructions Recorded potassium citrate 10 mEq (1,080 10 meq PO BID #180 tab 04/02/20 mg) tablet,extended release Results & Data (ED) Vital Signs Vital Signs - 24 hr 01/09/21 08:59 01/09/21 11:10 01/09/21 11:30 Temperature 36.8 C Temperature Source Oral Pulse Rate 91 H 79 76 Pulse Rate from SpO2 Sensor 77 77 Pulse Rhythm Respiratory Rate 18 15 18 Respiratory Depth Normal Blood Pressure 150/90 H 172/117 H 171/98 H Blood Pressure Mean 110 135 122 Pulse Oximetry 99 100 99 Oxygen Delivery Method Room Air Sepsis Recent Fever Within 48 Hours No Sepsis New/Unexplained Change in Mental Status N/A Sepsis Action Taken by Nursing No Action Required 01/09/21 11:41 01/09/21 12:00 01/09/21 12:38 Temperature Temperature Source Pulse Rate 73 85 Pulse Rate from SpO2 Sensor 93 H Pulse Rhythm Regular Respiratory Rate 18 20 20 Respiratory Depth Blood Pressure 176/106 H Blood Pressure Mean 129 Pulse Oximetry 99 97 Oxygen Delivery Method Room Air Sepsis Recent Fever Within 48 Hours Sepsis New/Unexplained Change in Mental Status Sepsis Action Taken by Nursing 01/09/21 12:40 01/09/21 12:50 01/09/21 13:00 Temperature Temperature Source Pulse Rate 80 72 79 Pulse Rate from SpO2 Sensor 84 72 72 Pulse Rhythm Respiratory Rate 24 18 16 Respiratory Depth Blood Pressure 142/90 H Blood Pressure Mean 107 Pulse Oximetry 98 100 98 Oxygen Delivery Method Sepsis Recent Fever Within 48 Hours Sepsis New/Unexplained Change in Mental Status Sepsis Action Taken by Nursing 01/09/21 13:30 01/09/21 14:00 01/09/21 14:30 Temperature Temperature Source Pulse Rate 85 78 86 Pulse Rate from SpO2 Sensor 82 79 85 Pulse Rhythm Respiratory Rate 15 14 16 Respiratory Depth Blood Pressure 171/95 H 153/90 H 146/98 H Blood Pressure Mean 120 111 114 Pulse Oximetry 100 98 100 Oxygen Delivery Method Sepsis Recent Fever Within 48 Hours Sepsis New/Unexplained Change in Mental Status Sepsis Action Taken by Nursing 01/09/21 15:02 01/09/21 15:10 01/09/21 15:20 Temperature Temperature Source Pulse Rate 88 95 H 80 Pulse Rate from SpO2 Sensor 100 H Pulse Rhythm Respiratory Rate 21 19 19 Respiratory Depth Blood Pressure Blood Pressure Mean Pulse Oximetry 97 Oxygen Delivery Method Sepsis Recent Fever Within 48 Hours Sepsis New/Unexplained Change in Mental Status Sepsis Action Taken by Nursing 01/09/21 17:00 Temperature Temperature Source Pulse Rate 93 H Pulse Rate from SpO2 Sensor 94 H Pulse Rhythm Respiratory Rate 12 Respiratory Depth Blood Pressure 181/94 H Blood Pressure Mean 123 Pulse Oximetry 98 Oxygen Delivery Method Sepsis Recent Fever Within 48 Hours Sepsis New/Unexplained Change in Mental Status Sepsis Action Taken by Nursing Laboratory Data Attestation: I reviewed the patient's lab results. Result diagrams: 01/09/21 09:47 01/09/21 09:47 Lab Results 01/09/21 01/09/21 01/09/21 Range/Units 09:47 09:47 09:47 WBC 3.20 L (4.8-10.8) K/uL RBC 3.82 L (4.7-6.1) M/uL Hgb 12.2 L (14.0-18.0) g/dL Hct 39.2 L (42-52) % MCV 102.6 H (80-100) fL MCH 31.9 (25-34) pg MCHC 31.1 L (32-36) g/dL RDW Std Deviation 63.5 H (36.4-46.3) fL RDW Coeff of John 16.8 H (11.5-14.5) % Plt Count 138 (130-400) K/uL MPV 10.1 (7.4-10.4) fL Immature Gran % (Auto) 0.0 % Neut % (Auto) 63.1 % Lymph % (Auto) 27.8 % Tucker % (Auto) 7.2 % Eos % (Auto) 1.6 % Baso % (Auto) 0.3 % Neut # (Auto) 2.02 (1.4-6.5) K/uL Lymph # (Auto) 0.89 L (1.2-3.4) K/uL Tucker # (Auto) 0.23 (0.11-0.59) K/uL Eos # (Auto) 0.05 (0-0.5) K/uL Baso # (Auto) 0.01 (0-0.2) K/uL Immature Gran # (Auto) 0.00 (0.00-0.02) K/uL PT 9.8 (9.0-12.0) Seconds INR 1.0 (0.9-1.1) APTT 23.1 (21.0-31.0) Seconds PTT Ratio 0.9 Sodium 144 (136-145) mmol/L Potassium 5.3 H (3.5-5.1) mmol/L Chloride 111 H (98-107) mmol/L Carbon Dioxide 28 (21-32) mmol/L Anion Gap 5.0 (3-11) BUN 35 H (7-18) mg/dl Creatinine 2.70 H (0.6-1.4) mg/dl Est Cr Clr Drug Dosing 25.7 ml/min Est GFR ( Amer) 26.3 ml/min Est GFR (Non-Af Amer) 22.7 ml/min BUN/Creatinine Ratio 13.0 (10-20) Glucose 101 H (70-99) mg/dl Calcium 8.9 (8.5-10.1) mg/dl Phosphorus (2.5-4.9) mg/dl Magnesium (1.8-2.4) mg/dl Total Bilirubin 0.7 (0.2-1) mg/dl AST 14 L (15-37) U/L ALT 15 (12-78) U/L Alkaline Phosphatase 88 (45-117) U/L Troponin I < 0.015 (0-0.045) ng/ml NT-Pro-B Natriuret Pep (0-900) pg/ml Total Protein 5.9 L (6.4-8.2) gm/dl Albumin 3.0 L (3.4-5.0) gm/dl Globulin 2.9 (2.5-4.0) gm/dl Albumin/Globulin Ratio 1.0 (0.9-2) COVID-19 Eval Order SARS-CoV-2 (PCR) (Negative) 01/09/21 01/09/21 01/09/21 Range/Units 09:47 12:23 12:23 WBC (4.8-10.8) K/uL RBC (4.7-6.1) M/uL Hgb (14.0-18.0) g/dL Hct (42-52) % MCV (80-100) fL MCH (25-34) pg MCHC (32-36) g/dL RDW Std Deviation (36.4-46.3) fL RDW Coeff of John (11.5-14.5) % Plt Count (130-400) K/uL MPV (7.4-10.4) fL Immature Gran % (Auto) % Neut % (Auto) % Lymph % (Auto) % Tucker % (Auto) % Eos % (Auto) % Baso % (Auto) % Neut # (Auto) (1.4-6.5) K/uL Lymph # (Auto) (1.2-3.4) K/uL Tucker # (Auto) (0.11-0.59) K/uL Eos # (Auto) (0-0.5) K/uL Baso # (Auto) (0-0.2) K/uL Immature Gran # (Auto) (0.00-0.02) K/uL PT (9.0-12.0) Seconds INR (0.9-1.1) APTT (21.0-31.0) Seconds PTT Ratio Sodium (136-145) mmol/L Potassium (3.5-5.1) mmol/L Chloride (98-107) mmol/L Carbon Dioxide (21-32) mmol/L Anion Gap (3-11) BUN (7-18) mg/dl Creatinine (0.6-1.4) mg/dl Est Cr Clr Drug Dosing ml/min Est GFR ( Amer) ml/min Est GFR (Non-Af Amer) ml/min BUN/Creatinine Ratio (10-20) Glucose (70-99) mg/dl Calcium (8.5-10.1) mg/dl Phosphorus 3.5 (2.5-4.9) mg/dl Magnesium 1.5 L (1.8-2.4) mg/dl Total Bilirubin (0.2-1) mg/dl AST (15-37) U/L ALT (12-78) U/L Alkaline Phosphatase (45-117) U/L Troponin I (0-0.045) ng/ml NT-Pro-B Natriuret Pep 362 (0-900) pg/ml Total Protein (6.4-8.2) gm/dl Albumin (3.4-5.0) gm/dl Globulin (2.5-4.0) gm/dl Albumin/Globulin Ratio (0.9-2) COVID-19 Eval Order Covid19 at [facility] SARS-CoV-2 (PCR) NEGATIVE (Negative) 01/09/21 Range/Units 15:18 WBC (4.8-10.8) K/uL RBC (4.7-6.1) M/uL Hgb (14.0-18.0) g/dL Hct (42-52) % MCV (80-100) fL MCH (25-34) pg MCHC (32-36) g/dL RDW Std Deviation (36.4-46.3) fL RDW Coeff of John (11.5-14.5) % Plt Count (130-400) K/uL MPV (7.4-10.4) fL Immature Gran % (Auto) % Neut % (Auto) % Lymph % (Auto) % Tucker % (Auto) % Eos % (Auto) % Baso % (Auto) % Neut # (Auto) (1.4-6.5) K/uL Lymph # (Auto) (1.2-3.4) K/uL Tucker # (Auto) (0.11-0.59) K/uL Eos # (Auto) (0-0.5) K/uL Baso # (Auto) (0-0.2) K/uL Immature Gran # (Auto) (0.00-0.02) K/uL PT (9.0-12.0) Seconds INR (0.9-1.1) APTT (21.0-31.0) Seconds PTT Ratio Sodium (136-145) mmol/L Potassium (3.5-5.1) mmol/L Chloride (98-107) mmol/L Carbon Dioxide (21-32) mmol/L Anion Gap (3-11) BUN (7-18) mg/dl Creatinine (0.6-1.4) mg/dl Est Cr Clr Drug Dosing ml/min Est GFR ( Amer) ml/min Est GFR (Non-Af Amer) ml/min BUN/Creatinine Ratio (10-20) Glucose (70-99) mg/dl Calcium (8.5-10.1) mg/dl Phosphorus (2.5-4.9) mg/dl Magnesium (1.8-2.4) mg/dl Total Bilirubin (0.2-1) mg/dl AST (15-37) U/L ALT (12-78) U/L Alkaline Phosphatase (45-117) U/L Troponin I < 0.015 (0-0.045) ng/ml NT-Pro-B Natriuret Pep (0-900) pg/ml Total Protein (6.4-8.2) gm/dl Albumin (3.4-5.0) gm/dl Globulin (2.5-4.0) gm/dl Albumin/Globulin Ratio (0.9-2) COVID-19 Eval Order SARS-CoV-2 (PCR) (Negative) Administered Medications Heparin Sodium (Porcine) (Heparin Sod 5,000 Unit/0.5 Ml Vial) 5,000 units SQ Q12 ALFONSO Stop: 02/08/21 21:55 Last Admin: 01/10/21 00:50 Dose: 5,000 units Documented by: [id number] Lactated Ringer's (Lr) 1,000 mls @ 100 mls/hr IV .Q10H ALFONSO Stop: 02/08/21 22:14 Last Admin: 01/09/21 23:28 Dose: 100 mls/hr Documented by: [id number] Lorazepam (Lorazepam 0.5 Mg Tab) 0.5 mg PO HS ALFONSO Stop: 02/08/21 21:55 Last Admin: 01/09/21 23:28 Dose: 0.5 mg Documented by: [id number] Discontinued Medications Sodium Chloride (Nss) 500 mls @ 125 mls/hr IV .Q4H ALFONSO Stop: 02/08/21 12:29 Last Admin: 01/09/21 21:59 Dose: Not Given Documented by: [id number] Infusion: 01/09/21 21:57 Dose: 0 mls/hr Documented by: [id number] Admin: 01/09/21 16:40 Dose: 125 mls/hr Documented by: [id number] Infusion: 01/09/21 16:40 Dose: 125 mls/hr Documented by: [id number] Admin: 01/09/21 12:42 Dose: 125 mls/hr Documented by: [id number] Magnesium Sulfate/Dextrose (Magnesium Sulfate / D5w) 1 gm in 100 mls @ 100 mls/hr IV NOW STA Stop: 01/09/21 15:55 Last Infusion: 01/09/21 16:07 Dose: 100 mls/hr Documented by: [id number] Admin: 01/09/21 15:07 Dose: 100 mls/hr Documented by: [id number] Imaging Data Radiologist's Impression: Chest X-Ray 01/09/21 09:03 SINGLE VIEW CHEST CLINICAL HISTORY: Atypical chest pain. FINDINGS: An AP, portable, upright chest radiograph is compared to study dated 05/14/2020 and correlated with chest CT dated 10/12/2020. The cardiomediastinal silhouette is unremarkable noting atherosclerotic calcification of the thoracic aorta. Emphysema with chronic interstitial thickening and nodularity is similar to previous. There is no airspace consolidation typical for pneumonia or large pleural effusion. Scarring/atelectasis is noted at the lung bases. A nipple shadow projects over the left lung base. A metallic foreign body/fiducial is noted in the right upper lung. No pneumothorax is seen. The skeletal structures are osteopenic. The bony thorax is grossly intact. Degenerative change is seen throughout the thoracic spine. A bone island is again noted in the right anterior fifth rib. IMPRESSION: Emphysematous change with no acute cardiopulmonary abnormality. ACT 112: Negative or not required by law. Electronically signed by: Patrick Blankenship M.D. 01/09/2021 10:10 AM Abdomen/Pelvis CT 01/09/21 12:19 CT OF THE ABDOMEN AND PELVIS WITHOUT CONTRAST CLINICAL HISTORY: h/o RCC, CP with exertion COMPARISON STUDY: CT of the abdomen and pelvis October 12, 2020. TECHNIQUE: Axial images of the abdomen and pelvis were obtained without IV contrast. Images were reviewed in the axial, sagittal, and coronal planes. A utomated exposure control was utilized for the study. A dose lowering technique was utilized adhering to the principles of ALARA. FINDINGS: Please note that the chest CT will be reported separately. No pneumatosis, free air or portal venous gas is present. Evaluation of the abdomen and pelvis is suboptimal on this unenhanced exam. The liver, spleen, adrenal glands and pancreas are unremarkable. There is no right hydronephrosis. Note is made of a 2.4 cm lesion arising from the upper pole of the right kidney. Attenuation on this unenhanced exam is 27 Hounsfield units. This is suboptimally assessed on this examination. A 1.5 cm water attenuation right renal lesion likely reflects a cyst. Left kidney is surgically absent. A 4.6 cm left nep hrectomy bed fluid collection has slightly decreased in size since prior examination. No evidence for a bowel obstruction. There is no lymphadenopathy. The appendix is normal. There is sigmoid diverticulosis without evidence for acute diverticulitis. Several skeletal sclerotic lesions are unchanged. These are likely benign. IMPRESSION: 1. No acute process within the abdomen or pelvis on unenhanced exam. 2. Status post left nephrectomy. Slight decrease in size of the left nephrectomy bed fluid collection. 3. Right upper pole renal lesion which measures at least 2.4 cm. This is suboptimally assessed on this unenhanced exam. This measures above water attenuation and may reflect a proteinaceous cyst or solid renal lesion. Nonemergent renal ultrasound is recommended for further evaluation. ACT 112: Negative or not required by law. Electronically signed by: Kavin Tavera M.D. 01/09/2021 1:[address] 01/09/21 12:19 CT chest diagnostic wo con CT DOSE: 777.59 mGy.cm HISTORY: Shortness of breath h/o renal cell carcinoma, atypical chest pain with exertion TECHNIQUE: Multiaxial CT images of the chest were performed without contrast. A dose lowering technique was utilized adhering to the principles of ALARA. COMPARISON: Chest 10/04/2020. FINDINGS: Mild emphysema. No pneumothorax. No pleural effusions. The central airways are patent. Stable linear and patchy groundglass densities within the right upper lobe anteriorly. This favors scarring. Stable 7 mm and 5 mm irregular nodules within the right lung apex on image 55. Stable 4 mm groundglass nodule within left upper lobe on image 62. Punctate metallic fiducial marker within the right lung apex. No new pulmonary nodules. No focal lung consolidations to suggest pneumonia. Stable sclerotic foci within the right ribs. Please refer to same day abdomen and pelvis CT for further evaluation of the abdominal structures. Normal esophagus. No mediastinal or hilar lymphadenopathy. The heart is normal in size. Normal caliber thoracic aorta. There is mild calcified plaque within the thoracic aorta and coronary arteries. IMPRESSION: 1. No significant change compared to the prior study. 2. Stable irregular right apical pulmonary nodules measuring 7 and 5 mm. There are a few additional scattered subcentimeter pulmonary nodules which are also stable. No new pulmonary nodules. 3. Mild emphysema. 4. Please refer to same day abdomen and pelvis CT for further evaluation of the abdominal structures. ACT 112: Negative or not required by law. Electronically signed by: Milo Cruz M.D. 01/09/2021 12:58 PM Discharge Plan Visit Data Chief Complaint: Chest Pain Stated Complaint: CHEST PAIN, BI ARM WEAKNESS ED Provider: Kenny Mcintosh Discharge Problem: Exertional chest pain, Chronic renal insufficiency, Metastatic renal cell carcinoma Patient Disposition: Admitted As Inpatient Discharge Instructions Interventions: ED Discharge Assessment Last Done: 01/09/21 18:23 Discharge Problem: Chronic renal insufficiency Qualifiers: Chronic kidney disease stage: unspecified stage Qualified Code(s): N18.9 - Chronic kidney disease, unspecified Metastatic renal cell carcinoma Qualifiers: Laterality: unspecified laterality Qualified Code(s): C64.9 - Malignant neoplasm of unspecified kidney, except renal pelvis
[2021-01-09] MEDS ORDERED: MAGNESIUM SULFATE / D5W 1 GM/100 ML BAG IV STA (14:56)
--- NOTE | 2021-01-09 15:18 | Critical Care Consultation ---
Date of Consultation January 09, 2021 Assessment & Plan (1) Dyspnea: (2) GERD (gastroesophageal reflux disease): (3) Hypothyroidism: (4) Metastatic renal cell carcinoma: (5) Chronic renal insufficiency: (6) Sarcoidosis: History of Present Illness History of Present Illness 70 YOM with past medical history of: GERD, 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 He had a partial left nephrectomy with return requiring total nephrectomy. Metastatic disease to the brain was treated with gamma knife. He is on SUTENT for continual therapy. The patient also has history of significant gastric upset and diarrhea likely related to his Sutent as well as GERD, he had a recent EGD without significant findings and continues on daily Protonix 40 mg. The patient came to the emergency room today for complaints of dyspnea and chest pain. The chest pain feels like a burning pain that starts in his epigastrium and works his way up to his shoulders. He also has been having some associated dyspnea with this, most recent was yesterday during a 3-5 mile walk. He was able to turn around and make it home without having to stop for a break, but it was relieved with rest. He denies any nausea or vomiting with these episodes. He has no known cardiac disease, he endorse a stress test many years ago, however unable to find in our system. The patient is also not tachypneic or hypoxic. Last ECHO was in 2015 with EF 60-65% normal LV and no valve abnormalities. In the EMD he had a CXR done, ECG, CT scan of chest performed, and routine labs. His labs were unremarkable with stable renal function and a negative Troponin I and ECG was negative for dynamic changes. Patient's physical exam is negative for any murmurs, rubs, or positional chest pain. Will draw a second set of Troponin I at this time, I have spoken with cardiology Dr. Hyde on obtaining stress ECHO for initial evaluation of his symptoms and rule in/out cardiac process. Patient will be given a stress ECHO at this time. Allergies Allergy/AdvReac Type Severity Reaction Status Date / Time No Known Drug Allergies Allergy Unknown ` Verified 01/09/21 11:16 Home Medications Medication Instructions Recorded Confirmed Type cetirizine 10 mg tablet (Zyrtec) 10 mg PO DAILY PRN 05/14/18 01/09/21 History fluticasone propionate 50 1 spray INTRANASAL BID PRN 05/14/18 01/09/21 History mcg/actuation nasal spray,suspension (Flonase Allergy Relief) melatonin 5 mg tablet 5 mg PO HS 05/14/18 01/09/21 History tramadol 50 mg tablet 50 mg PO Q6H PRN 05/14/18 01/09/21 History ondansetron HCl 8 mg tablet 8 mg PO DAILY PRN tab 01/12/19 01/09/21 History valacyclovir 500 mg tablet 500 mg PO DAILY PRN 04/01/19 01/09/21 History potassium citrate 10 mEq (1,080 10 meq PO BID #180 tab 04/02/20 01/09/21 Rx mg) tablet,extended release lorazepam 0.5 mg tablet 0.5 mg PO HS 05/14/20 01/09/21 History pantoprazole 40 mg tablet,delayed 40 mg PO QAM 07/23/20 01/09/21 History release sunitinib 50 mg capsule (Sutent) 50 mg PO DIRECTED 07/23/20 01/09/21 History aspirin 81 mg tablet,delayed 81 mg PO QAM 01/09/21 01/09/21 History release cyanocobalamin (vitamin B-12) 100 100 mcg PO QAM 01/09/21 01/09/21 History mcg tablet (Vitamin B-12) hydrochlorothiazide 25 mg tablet 25 mg PO QAM 01/09/21 01/09/21 History levothyroxine 125 mcg tablet 125 mcg PO DAILYBB 01/09/21 01/09/21 History losartan 100 mg tablet 100 mg PO QAM 01/09/21 01/09/21 History Patient History Medical History (Updated 01/09/21 @ 15:42 by SYED Mendoza) Anemia Asthma Chronic renal insufficiency CVA (cerebral vascular accident) Depression with anxiety Herpes simplex type 1 infection History of nephrectomy, unilateral History of SCC (squamous cell carcinoma) of skin Hypertension Hypothyroidism Intracranial hemorrhage Kidney stones Lung nodule Metastatic renal cell carcinoma Nephrolithiasis Paresthesias Renal cell carcinoma (01/19/14) S/p nephrectomy Sarcoidosis Surgical History H/O craniotomy History of nephrectomy Family History Father , 63 yo Stroke Social History Smoking Status: Never smoker Hx Alcohol Use: Yes Hx Substance Use: No Preferred Language: [place] Communication Ability: Effective Beliefs That Will Affect Care: None Current Living Situation: Spouse Feels Safe at Home: Yes Assistive Devices: Glasses Review of Systems Review of Systems: REVIEW OF SYSTEMS: Constitutional: No fever, sweats or chills Eyes: No diplopia, no worsening or blurred vision ENT: normal hearing, no trouble swallowing Respiratory: (+) dyspnea azra exertion, No cough, sputum, dyspnea at rest Cardiovascular: (+) burning chest pain, NO tightness or palpitations Abdomen: (+) diarrhea chronic, No pain, nausea, vomiting, or constipation Musculoskeletal: No joint pain, calf pain, swelling Neurologic: No weakness, numbness/tingling, or balance problems Psychiatric: No anxiety or depression Skin: No rash or itch Physical Exam Physical Exam: PHYSICAL EXAM: General: awake, alert, no apparent distress Head: Normocephalic, atraumatic ENT: PERRL, EOMI, no pharyngeal exudate, mucous membranes moist Neuro: AAO x 3, speech clear and appropriate, strength intact bilaterally 5/5, sensation intact and equal all extremities and dermatomes, no pronator drift Chest: equal rise and fall of the chest, no accessory muscle use, no heaves or thrills, Clear to auscultation, on room air, Cardiac: Regular rate and rhythm, telemetry reviewed-NSR, skin warm dry, cap refill <3 seconds, peripheral pulses +2 no JVD, no murmur, no edema GI: NABS x 4 quadrants, soft, nontender to palpation, no rebound, guarding or tenderness : Spontaneously voiding, no pain, no CVA tenderness, Extremities: Normal inspection, no peripheral edema or erythema, calfs nontender to palpation Psych: Normal mood and affect Skin: no rash or erythema Results & Data Results & Data ([facility]) Vital Signs (Past 12 Hours) Vital Signs Temp Pulse Resp BP Pulse Ox 01/09/21 14:00 78 14 153/90 H 98 01/09/21 13:30 85 15 171/95 H 100 01/09/21 13:00 79 16 142/90 H 98 01/09/21 12:50 72 18 100 01/09/21 12:40 80 24 98 01/09/21 12:38 85 20 97 01/09/21 12:00 20 176/106 H 01/09/21 11:41 73 18 99 01/09/21 11:30 76 18 171/98 H 99 01/09/21 11:10 79 15 172/117 H 100 01/09/21 08:59 36.8 C 91 H 18 150/90 H 99 Laboratory Results Abnormal Labs 01/09/21 01/09/21 01/09/21 09:47 09:47 09:47 WBC 3.20 L RBC 3.82 L Hgb 12.2 L Hct 39.2 L MCV 102.6 H MCHC 31.1 L RDW Std Deviation 63.5 H RDW Coeff of John 16.8 H Lymph # (Auto) 0.89 L Potassium 5.3 H Chloride 111 H BUN 35 H Creatinine 2.70 H Glucose 101 H Magnesium 1.5 L AST 14 L Total Protein 5.9 L Albumin 3.0 L Diagnostic Findings Chest X-Ray 01/09/21 09:03 SINGLE VIEW CHEST CLINICAL HISTORY: Atypical chest pain. FINDINGS: An AP, portable, upright chest radiograph is compared to study dated 05/14/2020 and correlated with chest CT dated 10/12/2020. The cardiomediastinal silhouette is unremarkable noting atherosclerotic calcification of the thoracic aorta. Emphysema with chronic interstitial thickening and nodularity is similar to previous. There is no airspace consolidation typical for pneumonia or large pleural effusion. Scarring/atelectasis is noted at the lung bases. A nipple shadow projects over the left lung base. A metallic foreign body/fiducial is noted in the right upper lung. No pneumothorax is seen. The skeletal structures are osteopenic. The bony thorax is grossly intact. Degenerative change is seen throughout the thoracic spine. A bone island is again noted in the right anterior fifth rib. IMPRESSION: Emphysematous change with no acute cardiopulmonary abnormality. Electronically signed by: Patrick Blankenship M.D. 01/09/2021 10:10 AM Abdomen/Pelvis CT 01/09/21 12:19 CT OF THE ABDOMEN AND PELVIS WITHOUT CONTRAST CLINICAL HISTORY: h/o RCC, CP with exertion COMPARISON STUDY: CT of the abdomen and pelvis October 12, 2020. TECHNIQUE: Axial images of the abdomen and pelvis were obtained without IV contrast. Images were reviewed in the axial, sagittal, and coronal planes. Automated exposure control was utilized for the study. A dose lowering techniq ue was utilized adhering to the principles of ALARA. FINDINGS: Please note that the chest CT will be reported separately. No pneumatosis, free air or portal venous gas is present. Evaluation of the abdomen and pelvis is suboptimal on this unenhanced exam. The liver, spleen, adrenal glands and pancreas are unremarkable. There is no right hydronephrosis. Note is made of a 2.4 cm lesion arising from the upper pole of the right kidney. Attenuation on this unenhanced exam is 27 Hounsfield units. This is suboptimally assessed on this examination. A 1.5 cm water attenuation right renal lesion l ikely reflects a cyst. Left kidney is surgically absent. A 4.6 cm left nephrectomy bed fluid collection has slightly decreased in size since prior examination. No evidence for a bowel obstruction. There is no lymphadenopathy. The appendix is normal. There is sigmoid diverticulosis without evidence for acute diverticulitis. Several skeletal sclerotic lesions are unchanged. These are likely benign. IMPRESSION: 1. No acute process within the abdomen or pelvis on unenhanced exam. 2. Status post left nephrectomy. Slight decrease in size of the left nephrectomy bed fluid collection. 3. Right upper pole renal lesion which measures at least 2.4 cm. This is suboptimally assessed on this unenhanced exam. This measures above water attenuation and may reflect a proteinaceous cyst or solid renal lesion. Nonemergent renal ultrasound is recommended for further evaluation. Electronically signed by: Kavin Tavera M.D. 01/09/2021 1:[address] 01/09/21 12:19 CT chest diagnostic wo con CT DOSE: 777.59 mGy.cm HISTORY: Shortness of breath h/o renal cell carcinoma, atypical chest pain with exertion TECHNIQUE: Multiaxial CT images of the chest were performed without contrast. A dose lowering technique was utilized adhering to the principles of ALARA. COMPARISON: Chest 10/04/2020. FINDINGS: Mild emphysema. No pneumothorax. No pleural effusions. The central airways are patent. Stable linear and patchy groundglass densities within the right upper lobe anteriorly. This favors scarring. Stable 7 mm and 5 mm irregular nodules within the right lung apex on image 55. Stable 4 mm groundglass nodule within left upper lobe on image 62. Punctate metallic fiducial marker within the right lung apex. No new pulmonary nodules. No focal lung consolidations to suggest pneumonia. Stable sclerotic foci within the right ribs. Please refer to same day abdomen and pelvis CT for further evaluation of the abdominal structures. Normal esophagus. No mediastinal or hilar lymphadenopathy. The heart is normal in size. Normal caliber thoracic aorta. There is mild calcified plaque within the thoracic aorta and coronary arteries. IMPRESSION: 1. No significant change compared to the prior study. 2. Stable irregular right apical pulmonary nodules measuring 7 and 5 mm. There are a few additional scattered subcentimeter pulmonary nodules which are also stable. No new pulmonary nodules. 3. Mild emphysema. 4. Please refer to same day abdomen and pelvis CT for further evaluation of the abdominal structures. ACT 112: Negative or not required by law. Electronically signed by: Milo Cruz M.D. 01/09/2021 12:58 PM Medications Administered Sodium Chloride (Nss) 500 mls @ 125 mls/hr IV .Q4H ALFONSO Stop: 02/08/21 12:29 Last Admin: 01/09/21 12:42 Dose: 125 mls/hr Documented by: [id number] Magnesium Sulfate/Dextrose (Magnesium Sulfate / D5w) 1 gm in 100 mls @ 100 mls/hr IV NOW STA Stop: 01/09/21 15:55 Last Admin: 01/09/21 15:07 Dose: 100 mls/hr Documented by: [id number] ECG Additional Comments: Normal sinus rhythm Septal infarct , age undetermined Abnormal ECG When compared with ECG of 23-JUL-2020 12:52, Septal infarct is now Present PG Care Time/CCT Total # of Minutes Spent Total Time Spent with Patient: Total time spent is greater than 50% in coordination of care (as documented) at patient's floor/unit and/or counseling patient: Coding Diagnoses Dyspnea R06.00 GERD (gastroesophageal reflux disease) K21.9 Hypothyroidism E03.9 Metastatic renal cell carcinoma C64.9 Chronic renal insufficiency N18.9 Sarcoidosis D86.9
--- NOTE | 2021-01-09 16:39 | History & Physical Report ---
Date of Service January 09, 2021 Assessment & Plan (1) Dyspnea: Plan: Dyspnea with exertion as above - Stress ECHO positive for changes- see report - Admit for cath in tomorrow, NPO after midnight - Monitor telemetry overnight - BR with BRP (2) GERD (gastroesophageal reflux disease): Plan: Chronic with dyspepsia and diarrhea - Continue with daily protonix (3) Abnormal stress echo: Plan: As above- cath in the morning - NPO after MN - LR at 100 ml/hr at 2200 (4) Hypothyroidism: Plan: No acute process - continue with Synthroid (5) CKD (chronic kidney disease), stage III: Plan: CKD IIIb - LR overnight in light of cardiac cath - follow renal indices - CLINICAL INFORMATICS DIRECTOR 2.7 which is below his baseline (6) Metastatic renal cell carcinoma: Plan: Stable - Continue SUTENT- patient may take his own medication- daily - take following cath tomorrow History of Present Illness Primary Care Provider: Muna Freitas MD 70 YOM with past medical history of: GERD, 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 He had a partial left nephrectomy with return requiring total nephrectomy. Metastatic disease to the brain was treated with gamma knife. He is on SUTENT for continual therapy. The patient also has history of significant gastric upset and diarrhea likely related to his Sutent as well as GERD, he had a recent EGD without significant findings and continues on daily Protonix 40 mg. The patient came to the emergency room today for complaints of dyspnea and chest pain. The chest pain feels like a burning pain that starts in his epigastrium and works his way up to his shoulders. He also has been having some associated dyspnea with this, most recent was yesterday during a 3-5 mile walk. He was able to turn around and make it home without having to stop for a break, but it was relieved with rest. He denies any nausea or vomiting with these episodes. He has no known cardiac disease, he endorse a stress test many years ago, however unable to find in our system. The patient is also not tachypneic or hypoxic. Last ECHO was in 2016 with EF 60-65% normal LV and no valve abnormalities. In the EMD he had a CXR done, ECG, CT scan of chest performed, and routine labs. His labs were unremarkable with stable renal function and a negative Troponin I and ECG was negative for dynamic changes. Patient's physical exam is negative for any murmurs, rubs, or positional chest pain. Will draw a second set of Troponin I at this time, I have spoken with cardiology Dr. Hyde on obtaining stress ECHO for initial evaluation of his symptoms and rule in/out cardiac process. Patient had a negative set of Troponin I x2 and exercise stress ECHO performed. Stress ECHO was noted for some changes. Patient will be admitted for planned cardiac catheterization tomorrow. Cardiology has been consulted as above, NPO after midnight. Allergies Allergy/AdvReac Type Severity Reaction Status Date / Time No Known Drug Allergies Allergy Unknown ` Verified 01/09/21 11:16 Home Medications Medication Instructions Recorded Confirmed Type cetirizine 10 mg tablet (Zyrtec) 10 mg PO DAILY PRN 05/14/18 01/09/21 History fluticasone propionate 50 1 spray INTRANASAL BID PRN 05/14/18 01/09/21 History mcg/actuation nasal spray,suspension (Flonase Allergy Relief) melatonin 5 mg tablet 5 mg PO HS 05/14/18 01/09/21 History tramadol 50 mg tablet 50 mg PO Q6H PRN 05/14/18 01/09/21 History ondansetron HCl 8 mg tablet 8 mg PO DAILY PRN tab 01/12/19 01/09/21 History valacyclovir 500 mg tablet 500 mg PO DAILY PRN 04/01/19 01/09/21 History potassium citrate 10 mEq (1,080 10 meq PO BID #180 tab 04/02/20 01/09/21 Rx mg) tablet,extended release lorazepam 0.5 mg tablet 0.5 mg PO HS 05/14/20 01/09/21 History pantoprazole 40 mg tablet,delayed 40 mg PO QAM 07/23/20 01/09/21 History release sunitinib 50 mg capsule (Sutent) 50 mg PO DIRECTED 07/23/20 01/09/21 History aspirin 81 mg tablet,delayed 81 mg PO QAM 01/09/21 01/09/21 History release cyanocobalamin (vitamin B-12) 100 100 mcg PO QAM 01/09/21 01/09/21 History mcg tablet (Vitamin B-12) hydrochlorothiazide 25 mg tablet 25 mg PO QAM 01/09/21 01/09/21 History levothyroxine 125 mcg tablet 125 mcg PO DAILYBB 01/09/21 01/09/21 History losartan 100 mg tablet 100 mg PO QAM 01/09/21 01/09/21 History Past Med/Surg History Medical History (Updated 01/09/21 @ 17:10 by SYED Mendoza) Anemia Asthma Chronic renal insufficiency CVA (cerebral vascular accident) Depression with anxiety Herpes simplex type 1 infection History of nephrectomy, unilateral History of SCC (squamous cell carcinoma) of skin Hypertension Hypothyroidism Intracranial hemorrhage Kidney stones Lung nodule Metastatic renal cell carcinoma Nephrolithiasis Paresthesias Renal cell carcinoma (01/19/14) S/p nephrectomy Sarcoidosis Surgical History H/O craniotomy History of nephrectomy Family History Father , 63 yo Stroke Social History Smoking Status: Never smoker Hx Alcohol Use: Yes Hx Substance Use: No Preferred Language: Frisian Communication Ability: Effective Beliefs That Will Affect Care: None Current Living Situation: Spouse Feels Safe at Home: Yes Assistive Devices: Glasses Review of Systems Review of Systems: REVIEW OF SYSTEMS: Constitutional: No fever, sweats or chills Eyes: No diplopia, no worsening or blurred vision ENT: normal hearing, no trouble swallowing Respiratory: (+) dyspnea azra exertion, No cough, sputum, dyspnea at rest Cardiovascular: (+) burning chest pain, NO tightness or palpitations Abdomen: (+) diarrhea chronic, No pain, nausea, vomiting, or constipation Musculoskeletal: No joint pain, calf pain, swelling Neurologic: No weakness, numbness/tingling, or balance problems Psychiatric: No anxiety or depression Skin: No rash or itch Physical Exam Physical Exam: PHYSICAL EXAM: General: awake, alert, no apparent distress Head: Normocephalic, atraumatic ENT: PERRL, EOMI, no pharyngeal exudate, mucous membranes moist Neuro: AAO x 3, speech clear and appropriate, strength intact bilaterally 5/5, sensation intact and equal all extremities and dermatomes, no pronator drift Chest: equal rise and fall of the chest, no accessory muscle use, no heaves or thrills, Clear to auscultation, on room air, Cardiac: Regular rate and rhythm, telemetry reviewed-NSR, skin warm dry, cap refill <3 seconds, peripheral pulses +2 no JVD, no murmur, no edema GI: NABS x 4 quadrants, soft, nontender to palpation, no rebound, guarding or tenderness : Spontaneously voiding, no pain, no CVA tenderness, Extremities: Normal inspection, no peripheral edema or erythema, calfs nontender to palpation Psych: Normal mood and affect Skin: no rash or erythema Results & Data Results & Data ([facility]) Vital Signs (Past 12 Hours) Vital Signs Temp Pulse Resp BP Pulse Ox 01/09/21 14:00 78 14 153/90 H 98 01/09/21 13:30 85 15 171/95 H 100 01/09/21 13:00 79 16 142/90 H 98 01/09/21 12:50 72 18 100 01/09/21 12:40 80 24 98 01/09/21 12:38 85 20 97 01/09/21 12:00 20 176/106 H 01/09/21 11:41 73 18 99 01/09/21 11:30 76 18 171/98 H 99 01/09/21 11:10 79 15 172/117 H 100 01/09/21 08:59 36.8 C 91 H 18 150/90 H 99 Diagnostic Findings Chest X-Ray 01/09/21 09:03 SINGLE VIEW CHEST CLINICAL HISTORY: Atypical chest pain. FINDINGS: An AP, portable, upright chest radiograph is compared to study dated 05/14/2020 and correlated with chest CT dated 10/12/2020. The cardiomediastinal silhouette is unremarkable noting atherosclerotic calcification of the thoracic aorta. Emphysema with chronic interstitial thickening and nodularity is similar to previous. There is no airspace consolidation typical for pneumonia or large pleural effusion. Scarring/atelectasis is noted at the lung bases. A nipple shadow projects over the left lung base. A metallic foreign body/fiducial is noted in the right upper lung. No pneumothorax is seen. The skeletal structures are osteopenic. The bony thorax is grossly intact. Degenerative change is seen throughout the thoracic spine. A bone island is again noted in the right anterior fifth rib. IMPRESSION: Emphysematous change with no acute cardiopulmonary abnormality. ACT 112: Negative or not required by law. Electronically signed by: Patrick Blankenship M.D. 01/09/2021 10:10 AM Abdomen/Pelvis CT 01/09/21 12:19 CT OF THE ABDOMEN AND PELVIS WITHOUT CONTRAST CLINICAL HISTORY: h/o RCC, CP with exertion COMPARISON STUDY: CT of the abdomen and pelvis October 12, 2020. TECHNIQUE: Axial images of the abdomen and pelvis were obtained without IV contrast. Images were reviewed in the axial, sagittal, and coronal planes. Automated exposure control was utilized for the study. A dose lowering technique was utilized adhering to the principles of ALARA. FINDINGS: Please note that the chest CT will be reported separately. No pneumatosis, free air or portal venous gas is present. Evaluation of the abdomen and pelvis is suboptimal on this unenhanced exam. The liver, spleen, adrenal glands and pancreas are unremarkable. There is no right hydronephrosis. Note is made of a 2.4 cm lesion arising from the upper pole of the right kidney. Attenuation on this unenhanced exam is 27 Hounsfield units. This is suboptimally assessed on this examination. A 1.5 cm water attenuation right renal lesion likely reflects a cyst. Left kidney is surgically absent. A 4.6 cm left nephrectomy bed fluid collection has slightly decreased in size since prior examination. No evidence for a bowel obstruction. There is no lymphadenopathy. The appendix is normal. There is sigmoid diverticulosis without evidence for acute diverticulitis. Several skeletal sclerotic lesions are unchanged. These are likely benign. IMPRESSION: 1. No acute process within the abdomen or pelvis on unenhanced exam. 2. Status post left nephrectomy. Slight decrease in size of the left nephrectomy bed fluid collection. 3. Right upper pole renal lesion which measures at least 2.4 cm. This is suboptimally assessed on this unenhanced exam. This measures above water attenuation and may reflect a proteinaceous cyst or solid renal lesion. Nonemergent renal ultrasound is recommended for further evaluation. ACT 112: Negative or not required by law. Electronically signed by: Kavin Tavera M.D. 01/09/2021 1:[address] 01/09/21 12:19 CT chest diagnostic wo con CT DOSE: 777.59 mGy.cm HISTORY: Shortness of breath h/o renal cell carcinoma, atypical chest pain with exertion TECHNIQUE: Multiaxial CT images of the chest were performed without contrast. A dose lowering technique was utilized adhering to the principles of ALARA. COMPARISON: Chest 10/04/2020. FINDINGS: Mild emphysema. No pneumothorax. No pleural effusions. The central airways are patent. Stable linear and patchy groundglass densities within the right upper lobe anteriorly. This favors scarring. Stable 7 mm and 5 mm irregular nodules within the right lung apex on image 55. Stable 4 mm groundglass nodule within left upper lobe on image 62. Punctate metallic fiduc ial marker within the right lung apex. No new pulmonary nodules. No focal lung consolidations to suggest pneumonia. Stable sclerotic foci within the right ribs. Please refer to same day abdomen and pelvis CT for further evaluation of the abdominal structures. Normal esophagus. No mediastinal or hilar lymphadenopathy. The heart is normal in size. Normal caliber thoracic aorta. There is mild calcified plaque within the thoracic aorta and coronary arteries. IMPRESSION: 1. No significant change compared to the prior study. 2. Stable irregular right apical pulmonary nodules measuring 7 and 5 mm. There are a few additional scattered subcentimeter pulmonary nodules which are also stable. No new pulmonary nodules. 3. Mild emphysema. 4. Please refer to same day abdomen and pelvis CT for further evaluation of the abdominal structures. ACT 112: Negative or not required by law. Electronically signed by: Milo Cruz M.D. 01/09/2021 12:58 PM Medications Administered Sodium Chloride (Nss) 500 mls @ 125 mls/hr IV .Q4H ALFONSO Stop: 02/08/21 12:29 Last Admin: 01/09/21 16:40 Dose: 125 mls/hr Documented by: [id number] Infusion: 01/09/21 16:40 Dose: 125 mls/hr Documented by: [id number] Admin: 01/09/21 12:42 Dose: 125 mls/hr Documented by: [id number] Discontinued Medications Magnesium Sulfate/Dextrose (Magnesium Sulfate / D5w) 1 gm in 100 mls @ 100 mls/hr IV NOW STA Stop: 01/09/21 15:55 Last Infusion: 01/09/21 16:07 Dose: 100 mls/hr Documented by: [id number] Admin: 01/09/21 15:07 Dose: 100 mls/hr Documented by: [id number] ECG Additional Comments: Normal sinus rhythm Septal infarct , age undetermined Abnormal ECG When compared with ECG of 23-JUL-2020 12:52, Septal infarct is now Present Code Status & VTE Plan Code Status CODE: FULL VTE: SCD's, Heparin 5000 sub q, q12 Supervising Physician Co-Signing Physician Notes Pt seen/examined in conjunction with MCKAYLA Hollis. Orders and plan of admission formulated with MCKAYLA. 70 y/o M Hx met renal CA, HTN, hypothyroidism, CKD IV. Pt presents with exertional chest pain which has been present for 2-3 days. He does not have any significant cardiac history and is normally quite active. While in the ER, [facility] The test proved + and he was then admitted for an AM cath. OE: General: AAO x 3, no distress ENT: No erythema or exudates, no thrush Eyes: BLANCA, EOMI Head and neck: Normocephalic, atraumatic, No JVD, neck is supple. Chest/heart: Nontender, S1,2, RRR, no murmurs, no gallops Lungs: CTAB, no wheezing or crackles Abdomen: Nontender, nondistended, BS+ Neuro: AAO x 3, speech is clear, no unilateral weakness or loss of sensation, coordination intact Musculoskeletal: No joint inflammation, muscle tenderness, FROM Skin: No acute rashes or ulcers Extremities: No clubbing, cyanosis, edema P: 1) CP with + stress - for cath AM - IVF overnight 2) CKD IV - stable 3) Renal CA - continues maintenance immune therapy 4) HTN - HCTZ, Losartan 5) Hypothyroidism - Synthroid Full code - Heparin prophylaxis Total time for this admit including review of labs, meds, imaging, records - discussion with pt, financial accounting analyst and ER attending - 50 min - includes time spent managing pt in ER PG Care Time/CCT Total # of Minutes Spent Total Time Spent with Patient: Total time spent is greater than 50% in coordination of care (as documented) at patient's floor/unit and/or counseling patient: Coding Level of Care Code 25166 Initial Inpt Care Lvl 3 Diagnoses Dyspnea R06.00 GERD (gastroesophageal reflux disease) K21.9 Hypothyroidism E03.9 Metastatic renal cell carcinoma C64.9 CKD (chronic kidney disease), stage III N18.30 Abnormal stress echo R94.39
[2021-01-09] MEDS ORDERED: FLUTICASONE PROPIONATE NA SPR 16 GM BTL NAE PRN (21:56)
[2021-01-09] MEDS ORDERED: traMADol HCL 50 MG TABLET PO PRN (21:56)
[2021-01-09] MEDS ORDERED: ONDANSETRON INJ 2 MG/ML 2 ML VIAL IV PRN (21:56)
[2021-01-09] MEDS ORDERED: POLYETHYLENE (MIRALAX) 17 GM PACK PO PRN (21:56)
[2021-01-09] MEDS ORDERED: CETIRIZINE HCL 10 MG TABLET PO PRN (21:56)
[2021-01-09] MEDS ORDERED: NITROGLYCERIN SL 0.4 MG/TAB TAB SL PRN (21:56)
[2021-01-09] MEDS ORDERED: ACETAMINOPHEN 325 MG TAB PO PRN (21:56)
[2021-01-09] MEDS ORDERED: MELATONIN 3 MG TAB PO PRN (22:07)
[2021-01-09] MEDS ORDERED: ONDANSETRON 4 MG OD TAB PO PRN (22:15)
[2021-01-09] MEDS: LACTATED RINGER'S 1,000 ML IV SCH (23:28)
[2021-01-09] MEDS: LORazepam 0.5 MG TAB PO SCH (23:28)
[2021-01-10] MEDS: HEPARIN SOD 5,000 UNIT/0.5 ML VIAL SQ SCH ×3 (00:50→21:58)
[2021-01-10] MEDS: LEVOTHYROXINE SODIUM 125 MCG TABLET PO SCH (06:40)
[2021-01-10 07:58] LABS: Eosinophils # (auto) 0.03 K/uL (0-0.5); Eosinophils % (auto) 1.1 %; Hematocrit (blood only) 33.8 % (42-52); Hemoglobin 10.6 g/dL (14.0-18.0); Lymphocytes # (auto) 0.86 K/uL (1.2-3.4); Lymphocytes % (auto) 30.7 %; Mean Corpuscular Hemoglobin 31.8 pg (25-34); Mean Corpuscular Hgb Conc 31.4 g/dL (32-36); Mean Corpuscular Volume 101.5 fL (80-100); Mean Platelet Volume 9.6 fL (7.4-10.4); Monocytes # (auto) 0.25 K/uL (0.11-0.59); Monocytes % (auto) 8.9 %; Neutrophils # (auto) 1.66 K/uL (1.4-6.5); Neutrophils % (auto) 59.3 %; Platelet Count 117 K/uL (130-400); RDW Coefficient of Variation 16.7 % (11.5-14.5); RDW Standard Deviation 62.5 fL (36.4-46.3); Red Blood Count 3.33 M/uL (4.7-6.1)
[2021-01-10] MEDS: ASPIRIN 81 MG ECTAB PO SCH (08:07)
[2021-01-10] MEDS: hydroCHLOROthiazide 25 MG TAB PO SCH (08:07)
[2021-01-10] MEDS: LOSARTAN POTASSIUM 50 MG TAB PO SCH (08:07)
[2021-01-10] MEDS: PANTOprazole 40 MG TAB PO SCH (08:08)
[2021-01-10] MEDS: CYANOCOBALAMIN (VITAMIN B-12) 100 MCG TABLET PO SCH (08:08)
--- NOTE | 2021-01-10 08:20 | Hospitalist Progress Note ---
Date of Service January 10, 2021 Assessment & Plan (1) Dyspnea: Plan: Dyspnea with exertion as above - Stress ECHO positive for changes- see report -Patient with Loss Prevention Representative had 2 drug-eluting stents placed in his right coronary artery will be observed in progressive care unit overnight (2) GERD (gastroesophageal reflux disease): Plan: Chronic with dyspepsia and diarrhea - Continue with daily protonix (3) Abnormal stress echo: Plan: Patient underwent catheterization will watch for post catheterization renal distress as he typically has chronic kidney disease stage IV (4) Hypothyroidism: Plan: No acute process - continue with Synthroid (5) CKD (chronic kidney disease), stage III: Plan: CKD III - IV - LR overnight in light of cardiac cath - follow renal indices - CERTIFIED MEDICATION TECHNICIAN 2.7 which is below his baseline (6) Metastatic renal cell carcinoma: Plan: Stable - Continue SUTENT- patient may take his own medication- daily -Appears to be some slight pulmonary metastasis present (7) Pancytopenia due to chemotherapy: Plan: Patient has pancytopenia likely from his chemotherapeutic medications to suppress his renal cell carcinoma that is metastatic Admission and Anticipated Discharge Date Admission Date: January 09, 2021 Subjective pt taken to the botany laboratory assistant and 2 SUMAN applied to RCA, held in botany laboratory assistant all day Review of Systems Review of Systems: Mild distress and fatigue no headache, no visual changes no speech or swallowing issues no chest pain, pressure or palpitations no shortness of breath, cough or wheezes no abdominal pain, nausea or vomiting, diarrhea or constipation no dysuria, hematuria or frequency no focal joint pain or swelling no back pain, CVA tenderness or radicular pain no bruising, bleeding or rashes no focal signs of weakness or numbness or altered sensation no complaints of anxiety or depression.. Physical Exam Physical Exam: The patient appeared well nourished and normally developed. Vital signs as documented. Head exam is normocephalic atraumatic Neck is without JVD, thyromegaly, or carotid bruits. Lungs are clear to auscultation, no focal loss of breath sounds Cardiac exam, Rhythm is regular.. No murmurs, rubs or gallops. Abdominal exam reveals normal bowel sounds, soft non tender, no masses Extremities are nonedematous and both pedal pulses are present Neurologic exam is alert and oriented, no focal loss of strength or sensation Skin is without bruises or rashes Psychologically is without concerns for anxiety or depression Results & Data Results & Data ([facility]) Vital Signs (Past 12 Hours) Vital Signs Temp Pulse Pulse Resp BP BP Pulse Ox 01/10/21 07:32 98.1 F 91 H 19 152/70 H 99 01/10/21 07:18 104 H 01/10/21 04:00 97.7 F 89 18 137/79 97 01/09/21 23:30 90 01/09/21 23:10 103 H 01/09/21 23:00 98.1 F 86 18 170/90 H 92 PG Care Time/CCT Total # of Minutes Spent Total Time Spent with Patient: Total time spent is greater than 50% in coordination of care (as documented) at patient's floor/unit and/or counseling patient: Coding Level of Care Code 26751 Subseq Hosp Care Lvl 2 Diagnoses Dyspnea R06.00 GERD (gastroesophageal reflux disease) K21.9 Abnormal stress echo R94.39 Hypothyroidism E03.9 CKD (chronic kidney disease), stage III N18.30 Metastatic renal cell carcinoma C64.9 Laterality: unspecified laterality Pancytopenia due to chemotherapy D61.810 (1) Metastatic renal cell carcinoma Laterality: unspecified laterality Qualified Code(s): C64.9 - Malignant neoplasm of unspecified kidney, except renal pelvis
[2021-01-10 08:25] LABS: BUN Creatinine Ratio 15.3 (10-20); Calcium 8.7 mg/dl (8.5-10.1); Creatinine Clr Calc Pharmacy 32.3 ml/min; Est GFR (African American) 31.9 ml/min; Est GFR (Non-African American) 27.5 ml/min; Magnesium 1.4 mg/dl (1.8-2.4); Potassium 4.8 mmol/L (3.5-5.1)
[2021-01-10] MEDS: LACTATED RINGER'S 1,000 ML IV SCH (09:19)
[2021-01-10] MEDS: MAGNESIUM SULFATE / D5W 1 GM/100 ML BAG IV SCH ×2 (09:21→10:59)
--- NOTE | 2021-01-10 10:09 | Cardiology Consultation ---
Date of Consultation January 10, 2021 Assessment & Plan (1) Exertional chest pain: (2) Abnormal stress echo: (3) Chronic renal insufficiency: (4) Hypertension: 1. Chest discomfort: Although somewhat atypical his chest discomfort is worrisome in that it is somewhat exertional, it has a character and duration suggestive of ischemic heart disease and it was reproduced on the stress test. He also has other reasons to have chest discomfort including his GERD however he may well have an anginal component. 2. Abnormal stress test: His stress test was abnormal and that he had exertional chest discomfort, the ST segments were abnormal and I believe there were wall motion abnormalities on the stress portion of the echocardiogram although it has not been formally read as yet. He also has what seem to be new septal Q waves, this could be lead placement but it has been on 2 successive electrocardiograms here and was not present in July of this year. I think we should plan catheterization, despite his renal insufficiency. 3. Chronic kidney disease: He has chronic kidney disease which is probably in large part due to his nephrectomy. His creatinine fluctuates quite a bit, from the mid 2 range up to the mid threes, currently it is 2.3. Although this increases his risk to IV dye I think we should consider catheterization. I will discuss with the internet application developer who would be doing the case if we do it. 4. Hypertension: His blood pressure is typically quite elevated on measurements over the last several months, before that it does fluctuate somewhat but is often elevated. At home he seems only to be on hydrochlorothiazide and losartan. His last nephrology note from October does not seem to list losartan. Perhaps calcium blockade or beta-blockade would be better, I will leave that up to the primary service and nephrology. 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 He has had surgery for his metastatic brain lesion. He is on ongoing chemotherapy. He has a lot of difficulty with GI distress including diarrhea and GERD, he has not had significant findings on EGD. He presented to the emergency room on January 09, 2021 with dyspnea on exertion and chest discomfort. His chest discomfort is described as a burning epigastric discomfort with radiation to his chest and both arms. He equates it somewhat to exercise although it is not clear that that is the only time he has it. He definitely had it with exercise the day before presentation. He tells me he walks 3 to 5 miles a day in the past has not had any discomfort doing that. He also notes that he is somewhat short of breath with exertion although that seems to come and go. I saw him during a stress test done on January 09, 2021, he was pain-free at rest however with exertion on the stress test did develop his chest discomfort which resolved during rest. On my review the stress test showed a basal wall motion abnormality although the overall left ventricular function was normal. His cardiac enzymes x2 are negative. His baseline electrocardiogram shows sinus rhythm with a possible septal infarct and some minor inferolateral ST depression. This is unchanged on this morning's electrocardiogram. He also had a comparison electrocardiogram July 23, 2020 which did not show the septal infarct. He also has chronic kidney disease with his creatinine typically in the mid 2 range. Since admission he has had no further chest discomfort but has not been active. Allergies Allergy/AdvReac Type Severity Reaction Status Date / Time No Known Drug Allergies Allergy Unknown ` Verified 01/09/21 11:16 Home Medications Medication Instructions Recorded Confirmed Type cetirizine 10 mg tablet (Zyrtec) 10 mg PO DAILY PRN 05/14/18 01/09/21 History fluticasone propionate 50 1 spray INTRANASAL BID PRN 05/14/18 01/09/21 History mcg/actuation nasal spray,suspension (Flonase Allergy Relief) melatonin 5 mg tablet 5 mg PO HS 05/14/18 01/09/21 History tramadol 50 mg tablet 50 mg PO Q6H PRN 05/14/18 01/09/21 History ondansetron HCl 8 mg tablet 8 mg PO DAILY PRN tab 01/12/19 01/09/21 History valacyclovir 500 mg tablet 500 mg PO DAILY PRN 04/01/19 01/09/21 History potassium citrate 10 mEq (1,080 10 meq PO BID #180 tab 04/02/20 01/09/21 Rx mg) tablet,extended release lorazepam 0.5 mg tablet 0.5 mg PO HS 05/14/20 01/09/21 History pantoprazole 40 mg tablet,delayed 40 mg PO QAM 07/23/20 01/09/21 History release sunitinib 50 mg capsule (Sutent) 50 mg PO DIRECTED 07/23/20 01/09/21 History aspirin 81 mg tablet,delayed 81 mg PO QAM 01/09/21 01/09/21 History release cyanocobalamin (vitamin B-12) 100 100 mcg PO QAM 01/09/21 01/09/21 History mcg tablet (Vitamin B-12) hydrochlorothiazide 25 mg tablet 25 mg PO QAM 01/09/21 01/09/21 History levothyroxine 125 mcg tablet 125 mcg PO DAILYBB 01/09/21 01/09/21 History losartan 100 mg tablet 100 mg PO QAM 01/09/21 01/09/21 History Patient History Medical History (Updated 01/10/21 @ 10:06 by Charles Hyde MD) Anemia Asthma Chronic renal insufficiency CVA (cerebral vascular accident) Depression with anxiety Herpes simplex type 1 infection History of nephrectomy, unilateral History of SCC (squamous cell carcinoma) of skin Hypertension Hypothyroidism Intracranial hemorrhage Kidney stones Lung nodule Metastatic renal cell carcinoma Nephrolithiasis Paresthesias Renal cell carcinoma (01/19/14) S/p nephrectomy Sarcoidosis Surgical History H/O craniotomy History of nephrectomy Family History Father , 63 yo Stroke Social History Smoking Status: Never smoker Do You Dip or Chew Tobacco: Yes; Tobacco Cessation Education Requested by Patient: No Hx Alcohol Use: No Hx Substance Use: No Preferred Language: Yoruba Communication Ability: Effective It Technical Architect Required: No Beliefs That Will Affect Care: None Current Living Situation: Spouse Other Information That Helps Us Care for You: No Feels Safe at Home: Yes Safety Concerns: Feels Safe At This Time Assistive Devices: Glasses and Hearing Aid - Bilateral Review of Systems Review of Systems: All systems reviewed & are unremarkable except as noted in HPI & below Physical Exam Physical Exam: Constitutional: Alert, cooperative and in no distress. HEENT: Unremarkable Neck: No jugular venous distention, carotid pulses are normal and equal bilaterally without bruits. Pulmonary: Clear to auscultation bilaterally. Cardiac: Regular rhythm with no murmur, gallop or rub. Abdomen: Soft, nontender with normal bowel sounds. Extremities: No edema. Distal pulses intact. Neurologic: No focal findings. Gait is steady. Skin: No rash, ecchymoses or petechiae. Results & Data ([facility]) Vital Signs (Past 12 Hours) Vital Signs Temp Pulse Pulse Resp BP BP Pulse Ox 01/10/21 07:32 36.7 C 91 H 19 152/70 H 99 01/10/21 07:18 104 H 01/10/21 04:00 36.5 C 89 18 137/79 97 01/09/21 23:30 90 01/09/21 23:10 103 H 01/09/21 23:00 36.7 C 86 18 170/90 H 92 Laboratory Results Cardiac Enzymes 01/09/21 01/09/21 Range/Units 09:47 15:18 AST 14 L (15-37) U/L Troponin I < 0.015 < 0.015 (0-0.045) ng/ml Coagulation 01/09/21 Range/Units 09:47 PT 9.8 (9.0-12.0) Seconds APTT 23.1 (21.0-31.0) Seconds CBC 01/09/21 01/10/21 Range/Units 09:47 07:45 WBC 3.20 L 2.80 L (4.8-10.8) K/uL RBC 3.82 L 3.33 L (4.7-6.1) M/uL Hgb 12.2 L 10.6 L (14.0-18.0) g/dL Hct 39.2 L 33.8 L (42-52) % Plt Count 138 117 L (130-400) K/uL Neut # (Auto) 2.02 1.66 (1.4-6.5) K/uL Lymph # (Auto) 0.89 L 0.86 L (1.2-3.4) K/uL Kinney # (Auto) 0.23 0.25 (0.11-0.59) K/uL Eos # (Auto) 0.05 0.03 (0-0.5) K/uL Baso # (Auto) 0.01 0.00 (0-0.2) K/uL Comprehensive Metabolic Panel 01/09/21 01/10/21 Range/Units 09:47 07:45 Sodium 144 144 (136-145) mmol/L Potassium 5.3 H 4.8 (3.5-5.1) mmol/L Chloride 111 H 114 H (98-107) mmol/L Carbon Dioxide 28 27 (21-32) mmol/L BUN 35 H 35 H (7-18) mg/dl Creatinine 2.70 H 2.30 H D (0.6-1.4) mg/dl Glucose 101 H 95 (70-99) mg/dl Calcium 8.9 8.7 (8.5-10.1) mg/dl AST 14 L (15-37) U/L ALT 15 (12-78) U/L Alkaline Phosphatase 88 (45-117) U/L Total Protein 5.9 L (6.4-8.2) gm/dl Albumin 3.0 L (3.4-5.0) gm/dl Intake and Output 01/09/21 01/10/21 01/10/21 22:59 06:59 14:59 Intake Total 1095.833 / 1095.833 985 / 985 Balance 1095.833 / 1095.833 985 / 985 Intake: IV 1095.833 / 1095.833 985 / 985 Lactated Ringer's 1,000 ml @ 985 / 985 100 mls/hr IV .Q10H ALFONSO Rx#: [id number] Magnesium Sulfate / D5w 1 gm In 100 / 100 100 ml @ 100 mls/hr IV NOW STA Rx#:[id number] Sodium Chloride 0.9% 500 ml @ 995.833 / 995.833 125 mls/hr IV .Q4H ALFONSO Rx#: [id number] Other: Other Intake Source NPO Weight 80 kg 80 kg Weight Measurement Method Standing Scale Standing Scale PG Care Time/CCT Total # of Minutes Spent Total Time Spent with Patient: Total time spent is greater than 50% in coordination of care (as documented) at patient's floor/unit and/or counseling patient: Coding Level of Care Code 45175 Initial Inpt Care Lvl 3 Diagnoses Exertional chest pain R07.9 Abnormal stress echo R94.39 Chronic renal insufficiency N18.9 Chronic kidney disease stage: unspecified stage Hypertension I10 Hypertension type: primary hypertension (1) Chronic renal insufficiency Chronic kidney disease stage: unspecified stage Qualified Code(s): N18.9 - Chronic kidney disease, unspecified (2) Hypertension Hypertension type: primary hypertension Qualified Code(s): I10 - Essential (p rimary) hypertension
[2021-01-10] MEDS ORDERED: niCARdipine HCL INJ 2.5 MG/ML 10 ML AMP ONE (12:40)
[2021-01-10] MEDS ORDERED: fentaNYL citrate 100 MCG/2 ML VIAL ONE (12:40)
[2021-01-10] MEDS ORDERED: HEPARIN (PORCINE) 1000 UNIT/ML 10 ML (CATH LAB USE ONLY) ONE (12:40)
[2021-01-10] MEDS ORDERED: MIDAZOLAM HCL 1 MG/ML 2ML VIAL ONE (12:40)
[2021-01-10] MEDS ORDERED: NITROGLYCERIN/D5W 100MCG/ML 20ML SYR ONE (12:41)
[2021-01-10] MEDS ORDERED: CLOPIDOGREL BISULFATE 300 MG TAB ONE (13:52)
--- NOTE | 2021-01-10 14:01 | Post Anesthesia Assessment ---
Date of Service January 10, 2021 Post Sedation Assessment Vital Signs Temp Pulse Pulse Pulse Resp BP BP 01/10/21 11:44 98.6 F 79 19 164/83 H 01/10/21 07:32 98.1 F 91 H 19 152/70 H 01/10/21 07:18 104 H 01/10/21 04:00 97.7 F 89 18 01/09/21 23:30 90 01/09/21 23:10 103 H 01/09/21 23:00 98.1 F 86 18 170/90 H 01/09/21 20:16 98.1 F 100 H 18 01/09/21 18:00 107 H 16 167/99 H 01/09/21 17:30 102 H 15 160/93 H 01/09/21 17:00 93 H 12 181/94 H 01/09/21 15:20 80 19 01/09/21 15:10 95 H 19 01/09/21 15:02 88 21 01/09/21 14:30 86 16 146/98 H BP Pulse Ox 01/10/21 11:44 98 01/10/21 07:32 99 01/10/21 07:18 01/10/21 04:00 137/79 97 01/09/21 23:30 01/09/21 23:10 01/09/21 23:00 92 01/09/21 20:16 179/100 H 99 01/09/21 18:00 97 01/09/21 17:30 01/09/21 17:00 98 01/09/21 15:20 01/09/21 15:10 97 01/09/21 15:02 01/09/21 14:30 100 Recovery Score Activity: Moves 4 extremities Respiration: Deep Breath/Cough Circulation: +/-20% PreAnes Value Consciousness: Fully Awake Oxygen Saturation: O2 needed for >90% Discharge Sedation Level of Care: Fast Track Phase II Post Sedation Plan On clinical assessment, the patient appears to have tolerated the sedation without complications. Patient is recovering as anticipated. Patient will continue to be monitored by nursing and may be discharged when sedation discharge criteria are met per below protocol. Upon Completions of procedure up to 15 minutes continue every 5 minute vital signs and the P.A.R. score; then discharge to a Phase I or Fast Track to Phase II per the following guidelines: * Discharge Patient to appropriate Phase II area if PAR is 8 or greater or return to pre- procedure baseline. The post - procedure orders will be as directed. * If PAR score is less than 8 or not return to pre-procedure baseline then patient will follow Phase I monitoring till PAR is reached for Phase II. The Phase I may be done in procedure room or may call to secure a Phase I area. * If naloxone or flumazenil are used for reversal, hold in Phase I for continued monitoring from when last reversal dose was given for a minimum of 60 minutes or longer pending the nurse and/or physician discretion of patient condition before discharge to Phase II. Please call the Sedation Physician to re-evaluate and complete post-note for discharge to Phase II area. Do NOT discharge from procedure sedation or Phase 1 until post- sedation evaluation note is complete by procedure /sedation MD Sedation Discharge Instructions to be given to the patient at discharge to home.
--- NOTE | 2021-01-10 14:01 | Pre Anesthesia Assessment ---
Date of Service January 10, 2021 Pre Sedation Assessment Vital Signs Temp Pulse Pulse Pulse Resp BP BP 01/10/21 11:44 98.6 F 79 19 164/83 H 01/10/21 07:32 98.1 F 91 H 19 152/70 H 01/10/21 07:18 104 H 01/10/21 04:00 97.7 F 89 18 01/09/21 23:30 90 01/09/21 23:10 103 H 01/09/21 23:00 98.1 F 86 18 170/90 H 01/09/21 20:16 98.1 F 100 H 18 01/09/21 18:00 107 H 16 167/99 H 01/09/21 17:30 102 H 15 160/93 H 01/09/21 17:00 93 H 12 181/94 H 01/09/21 15:20 80 19 01/09/21 15:10 95 H 19 01/09/21 15:02 88 21 01/09/21 14:30 86 16 146/98 H 01/09/21 14:00 78 14 153/90 H BP Pulse Ox 01/10/21 11:44 98 01/10/21 07:32 99 01/10/21 07:18 01/10/21 04:00 137/79 97 01/09/21 23:30 01/09/21 23:10 01/09/21 23:00 92 01/09/21 20:16 179/100 H 99 01/09/21 18:00 97 01/09/21 17:30 01/09/21 17:00 98 01/09/21 15:20 01/09/21 15:10 97 01/09/21 15:02 01/09/21 14:30 100 01/09/21 14:00 98 Cardiovascular RRR, no murmur, no edema Respiratory normal respiratory effort, lungs clear to auscultation Pre-Sedation Airway Assessment Smoking Status: Never smoker Hx Sleep Apnea: No Hx Difficult Intubation: No Short, Thick Neck: No Thyromental Distance: > or= 3.5 Finger Breadths Oral Cavity: + WNL Mallampati Class: II ASA: ASA3 NPO Status Date of Last Intake of Fluids: 01/09/21 Time of Last Intake of Fluids: 20:00 Date of Last Intake of Solid Food: 01/09/21 Time of Last Intake of Solid Foods: 20:00 Procedure Planning Contraindications for Sedation: none Current Medications Reviewed: Yes Notes The planned sedation has been discussed with the patient. Informed Consent was obtained. I have identified the patient, determined the appropriateness of sedation and have assessed the patient immediately prior to the procedure. All medicine(s) and interventions are by my order.
--- NOTE | 2021-01-10 14:02 | Post Operative Brief Note ---
Cardiology Brief Post Op Date of Surgery January 10, 2021 Pre & Post Diagnosis Operation Date: 01/10/21 12:45 <No data on this case meets the specified criteria> Procedure cardiac cath PCI Supervisor Refining Josh Lebron MD Sink Cutter showers Estimated Blood Loss 15 Findings See Below 95% mid RCA 80% distal RCA PCI with 1 SUMAN to mid RCA PCI with 1 SUMAN to distal RCA Anesthesia Type RN Sedation Complications none Disposition Accompanied Patient To Recovery: No Disposition: PCU Overlapping Procedure I was present for: the critical portions of procedure. I was immediately available: during the entire case. Back up surgeon: was not required during procedure.
[2021-01-10] MEDS ORDERED: SODIUM CHLORIDE 0.9% 1000ML 1,000 ML IV SCH (14:15)
--- NOTE | 2021-01-10 18:20 | Cardiac Catheterization ---
[facility] Data: Rubber Mixer Cardiac Status Clinical evaluation leading to the procedure CAD Presenation: Positive Stress Test and Unstable angina Anginal Classification: CCS III Heart Failure: No Cardiogenic Shock within 24 Hours: No Cardiac Arrest within 24 Hours: No Imaging Studies Past 6 Months: Yes Stress Studies Past 6 Months: Yes Stress Echocardiogram: Yes - Positive and Risk/Extent of Ischemia (Intermediate) Diagnostic Physicians Name: Josh Lebron MD Status: Elective Closure Device Percutaneous Entry Location: Radial Closure Device: Radial Band Recommendations: PCI without planned CABG PCI Indication: + Stress Test and Unstable Angina Lesion Segment Name: Mid RCA Culprit Artery: Yes Stenosis Prior to Rx (%): 95 Chronic Total Occlusion: No IVUS: No FFR: No Pre-Procedure ROSAMARIA Flow: 3 Previously Treated Lesion: No Lesion Complexity: Non-High/Non-C Lesion Length (mm): 15 Thrombus Present: Yes Bifurcation Lesion: No Guidewire Across Lesion: Stenosis Post-Procedure (%): 0 Post-Procedure ROSAMARIA Flow: 3 Devices(s) Deployed: Yes Yes Cardiac Cath Procedure Full Procedure Date January 10, 2021 Pre-Procedure Diagnosis Pre-Procedure Diagnosis: Acute Coronary Syndrome and Positive Stress Test AUC Score AUC Score: 7 Post-Procedure Diagnosis Post-Procedure Diagnosis: Severe CAD and Successful PCI Procedure(s) Performed Procedure(s) Performed: Coronary Angiography, Left Heart Cath and Drug Eluting Stent Personnel Quality Assurance Auditor Josh Lebron MD Satellite Dish Repairer(s) Showers Estimated Blood Loss Estimated Blood Loss: 15 Medication(s) Medication(s): Clopidogrel, Fentanyl, Heparin, Lidocaine 1%, Nicardipine, Nitroglycerin and Versed Summary of Findings Indication: Unstable angina, abnormal stress test Access: 6 Fr right radial artery Catheters: [place], JR4 guide Findings: LM -normal caliber, no significant disease LAD - Medium caliber, diffuse 20 to 30% proximal disease, mid/distal vessel with luminal irregularities and wraps around apex. Small D2 60% ostial. Circumflex -medium caliber, 30% ostial, mid segment luminal irregularities. Medium high OM1 gives off a small superior branch with severe ostial stenosis. Medium left PLB without significant disease. RCA -dominant, medium caliber, mid segment ectatic prior to 95% stenosis with suspected thrombus, diffuse distal disease up to 90%. Right PDA small with 40% proximal stenosis. LVEDP - 15 -- PCI -- Antithrombotic therapy: Heparin, clopidogrel Procedure: RCA cannulated with JR4 guide Restaurant Culinary Manager 50 wire passed across lesions into distal right PDA Mid and distal RCA lesions predilated with 2.0 compliant balloon Distal RCA lesion stented with 2.25 x 22 mm Jeff drug-eluting stent Stent postdilated with stent balloon Dilated mid RCA lesion stented with 2.5 x 18 mm Jeff drug-eluting stent Mid RCA stent post-dilated with 3.0 noncompliant balloon IC vasodilators administered for spasm Post procedure ROSAMARIA 3 flow, stents well expanded with minimal residual stenosis and no apparent cardiac complications. Arterial Closure: TR band Summary: 1. Severe single vessel coronary artery disease -90+% mid RCA, 90% diffuse distal RCA 20 to 30% proximal LAD 30% ostial circumflex. Severe small branch vessel disease involving D2, superior branch of OM1 2. Normal intracardiac filling pressure 3. Successful PCI of mid RCA with single drug-eluting stent (2.5 x 18 mm Jeff; postdilated with 3.0 NC). 4. Successful PCI of distal RCA with single drug-eluting stent (2.25 x 22 mm [place]). Recommendations: To PCU for continued monitoring Continued IV fluids for contrast nephropathy prevention Loaded with clopidogrel 600 mg in Rubber Mixer Continue dual-antiplatelet therapy for at least 1 year Continue statin, and ASCVD risk factor modification Consult cardiac Rehab Hemodynamics Rest Ao:: 147/80/107 Final Ao: 137/75/103 LV: 143/15 Recommendations Recommendations: PCI without planned CABG Specimens Specimens: None Radiation Exposure (mGy) 1857 Contrast (mls) 80 Fluids (cc crystalloids) Fluids (cc crystalloids): 143 Drains Drains: None Anesthesia Moderate Procedural Complication(s) None Disposition PCU I attest to the content of the Intraoperative Record and any orders documented therein. Any exceptions are noted below. [facility] Card Cath Procedure Codes Cardiac Catheterization Procedure 1: Cardiovascular Cath Procedures: 32135 Coronaries and LHC (+/-LV) Moderate Sedation Procedure 1: Sedation/Anesthesia: 74262 Mod Sedation by the same physician;Init15 Min Child Age 5 & Up Procedure 2: Sedation/Anesthesia: 29433 Mod Sedation by the same physician; Ea [id number] Minutes Stenting Procedure 1: Cardiovascular Stent Procedures: 36552 Perc transcatheter placement of intracoronary stent(s), with ang PG Care Time/CCT Total # of Minutes Spent Total Time Spent with Patient: Total time spent is greater than 50% in c oordination of care (as documented) at patient's floor/unit and/or counseling patient:
[2021-01-10] MEDS: SUNITINIB PO SCH (20:08)
[2021-01-10] MEDS: LORazepam 0.5 MG TAB PO SCH (21:58)
--- NOTE | 2021-01-10 22:12 | XCELERA ---
[id number]
[2021-01-11] MEDS: LEVOTHYROXINE SODIUM 125 MCG TABLET PO SCH (06:29)
[2021-01-11 07:53] LABS: Eosinophils # (auto) 0.02 K/uL (0-0.5); Eosinophils % (auto) 0.7 %; Hematocrit (blood only) 32.6 % (42-52); Hemoglobin 10.2 g/dL (14.0-18.0); Lymphocytes # (auto) 0.79 K/uL (1.2-3.4); Lymphocytes % (auto) 27.8 %; Mean Corpuscular Hgb Conc 31.3 g/dL (32-36); Mean Corpuscular Volume 99.1 fL (80-100); Mean Platelet Volume 9.7 fL (7.4-10.4); Monocytes # (auto) 0.28 K/uL (0.11-0.59); Monocytes % (auto) 9.9 %; Neutrophils # (auto) 1.75 K/uL (1.4-6.5); Neutrophils % (auto) 61.6 %; Platelet Count 109 K/uL (130-400); RDW Coefficient of Variation 16.7 % (11.5-14.5); RDW Standard Deviation 60.3 fL (36.4-46.3); Red Blood Count 3.29 M/uL (4.7-6.1); White Blood Count 2.84 K/uL (4.8-10.8)
[2021-01-11] MEDS: CYANOCOBALAMIN (VITAMIN B-12) 100 MCG TABLET PO SCH (08:09)
[2021-01-11] MEDS: ASPIRIN 81 MG ECTAB PO SCH (08:09)
[2021-01-11] MEDS: HEPARIN SOD 5,000 UNIT/0.5 ML VIAL SQ SCH (08:10)
[2021-01-11] MEDS: hydroCHLOROthiazide 25 MG TAB PO SCH (08:10)
[2021-01-11] MEDS: LOSARTAN POTASSIUM 50 MG TAB PO SCH (08:11)
[2021-01-11] MEDS: SUNITINIB PO SCH (08:12)
[2021-01-11] MEDS: PANTOprazole 40 MG TAB PO SCH (08:13)
[2021-01-11 08:21] LABS: BUN Creatinine Ratio 12.4 (10-20); Calcium 8.9 mg/dl (8.5-10.1); Est GFR (African American) 30.3 ml/min; Est GFR (Non-African American) 26.2 ml/min; Magnesium 1.6 mg/dl (1.8-2.4); Potassium 4.6 mmol/L (3.5-5.1)
[2021-01-11] MEDS ORDERED: CLOPIDOGREL BISULFATE 75 MG TAB PO SCH (09:00)
[2021-01-11] MEDS ORDERED: MAGNESIUM SULFATE / D5W 1 GM/100 ML BAG IV ONE (10:30)
--- NOTE | 2021-01-11 13:37 | Cardiology Progress Note ---
Date of Service January 11, 2021 Assessment & Plan (1) CAD (coronary artery disease): Plan: -- post PCI with 2 SUMAN to RCA -- small branch vessel disease. 2. Preserved LV function. 3. Solitary kidney with CKD - stable renal function 4. Metastatic renal cell carcinoma -- on chronic theray 5. Pancytopenia 6. Hypertension 7. SVT - brief on tele, asymptomatic Stable from a cardiac standpoint post PCI and OK for discharge today. -- Home on DAPT with ASA/Clopidogrel -- Agree with ARB, toprol and HCTZ -- Discuss statin as an outpatient -- F/up BMP next week. Follow-up with me in 1-2 weeks. Admission and Anticipated Discharge Date Admission Date: January 09, 2021 Subjective Feeling well this morning. No chest pain. No other new concerns. Tele reviewed -- brief runs of SVT - likely AT up to 140s. Review of Systems Review of Systems: All systems reviewed & are unremarkable except as noted in HPI & below Physical Exam Physical Exam: General: Comfortable, no acute distress Eyes: Sclerae anicteric Lungs: Clear to auscultation bilaterally Cardiac: Regular rate and rhythm Abdomen: Soft, nontender Neuro: Nonfocal Psych: Alert orient x3, normal affect and mood Extremities/Vascular: -- 2+ radial on RT. Ecchymosis to forearm. No hematoma. Distal sensation/cap refill intact. -- No edema Results & Data ([facility]) Vital Signs (Past 12 Hours) Vital Signs Temp Pulse Pulse Pulse Resp BP BP 01/11/21 11:46 97.7 F 76 20 169/89 H 01/11/21 11:33 97.9 F 83 100 H 20 171/92 H 137/79 01/11/21 10:43 98 H 01/11/21 07:55 97.9 F 83 20 171/92 H 01/11/21 02:49 97.7 F 87 16 156/78 H Pulse Ox 01/11/21 11:46 98 01/11/21 11:33 99 01/11/21 10:43 01/11/21 07:55 99 01/11/21 02:49 98 PG Care Time/CCT Total # of Minutes Spent Total Time Spent with Patient: Total time spent is greater than 50% in coordination of care (as documented) at patient's floor/unit and/or counseling patient: Coding Level of Care Code 59786 Subseq Hosp Care Lvl 3 Diagnoses CAD (coronary artery disease) I25.10
--- NOTE | 2021-01-11 16:44 | Electrocardiogram Report ---
Test Reason : Blood Pressure : / mmHG Vent. Rate : 084 BPM Atrial Rate : 084 BPM P-R Int : 162 ms QRS Dur : 084 ms QT Int : 358 ms P-R-T Axes : 059 030 044 degrees QTc Int : 423 ms Normal sinus rhythm Septal infarct , age undetermined Abnormal ECG When compared with ECG of 23-JUL-2020 12:52, Septal infarct is now Present Confirmed by Charles Hyde ([id number]) on 01/11/2021 4:44:11 PM Referred By: Confirmed By:Chrales Hyde
--- NOTE | 2021-01-11 17:05 | Electrocardiogram Report ---
Test Reason : Blood Pressure : / mmHG Vent. Rate : 090 BPM Atrial Rate : 090 BPM P-R Int : 168 ms QRS Dur : 080 ms QT Int : 356 ms P-R-T Axes : 072 015 048 degrees QTc Int : 435 ms Normal sinus rhythm Septal infarct (cited on or before 09-JAN-2021) Abnormal ECG When compared with ECG of 09-JAN-2021 09:02, (unconfirmed) No significant change was found Confirmed by Charles Hyde ([id number]) on 01/11/2021 5:05:05 PM Referred By: REFERRED SELF Confirmed By:Charles Hyde
--- NOTE | 2021-01-11 18:04 | Discharge Summary ---
Date of Service January 11, 2021 Admission HPI Per Admitting Provider 70 YOM with past medical history of: GERD, 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 He had a partial left nephrectomy with return requiring total nephrectomy. Metastatic disease to the brain was treated with gamma knife. He is on SUTENT for continual therapy. The patient also has history of significant gastric upset and diarrhea likely related to his Sutent as well as GERD, he had a recent EGD without significant findings and continues on daily Protonix 40 mg. The patient came to the emergency room today for complaints of dyspnea and chest pain. The chest pain feels like a burning pain that starts in his epigastrium and works his way up to his shoulders. He also has been having some associated dyspnea with this, most recent was yesterday during a 3-5 mile walk. He was able to turn around and make it home without having to stop for a break, but it was relieved with rest. He denies any nausea or vomiting with these episodes. He has no known cardiac disease, he endorse a stress test many years ago, however unable to find in our system. The patient is also not tachypneic or hypoxic. Last ECHO was in 2016 with EF 60-65% normal LV and no valve abnormalities. In the EMD he had a CXR done, ECG, CT scan of chest performed, and routine labs. His labs were unremarkable with stable renal function and a negative Troponin I and ECG was negative for dynamic changes. Patient's physical exam is negative for any murmurs, rubs, or positional chest pain. Will draw a second set of Troponin I at this time, I have spoken with cardiology Dr. Hyde on obtaining stress ECHO for initial evaluation of his symptoms and rule in/out cardiac process. Patient had a negative set of Troponin I x2 and exercise stress ECHO performed. Stress ECHO was noted for some changes. Patient will be admitted for planned cardiac catheterization tomorrow. Cardiology has been consulted as above, NPO after midnight. Principal Diagnosis unstable angina 2 SUMAN RCA Discharge Exam The patient appeared well Vital signs as documented. Lungs are clear to auscultation and appear unlabored Cardiac exam, Rhythm is regular.. No murmurs, rubs or gallops. Abdominal exam reveals normal bowel sounds, soft non tender, no masses Extremities right arm with bruise but intact distal sensation and pulse Neurologic exam is alert and oriented, no focal loss of strength or sensation Skin is without bruises or rashes Psychologically is without concerns for anxiety or depression. Discharge Data Allergies Allergy/AdvReac Type Severity Reaction Status Date / Time No Known Drug Allergies Allergy Unknown ` Verified 01/09/21 11:16 Consultations 01/09/21 14:35 ED Decision to Admit Stat 01/09/21 21:56 Consult Cardiology Routine 01/10/21 14:04 Consult Cardiac Rehabilitation Routine Procedures Performed Operation Date: 01/10/21 12:45 Actual Procedures p Cath, Left with Cors and Vent - Olivier Pozo MD p Drug Eluting Stent SGl Vessel - Olivier Pozo MD s Cineradiography w/Routine Exam - Olivier Pozo MD Ordered Studies 01/09/21 12:19 CT abd pelvis wo con Stat CT chest diagnostic wo con Stat 01/10/21 12:35 CL Cath Imgs for PACS use only Routine Hospital Course (1) Dyspnea: Dyspnea with exertion as above - Stress ECHO positive for changes- see report -Patient with [employer] had 2 drug-eluting stents placed in his right coronary artery did have some hypertension and svt, will have metoprolol started as well atorvastatin (2) GERD (gastroesophageal reflux disease): Chronic with dyspepsia and diarrhea - Continue with daily protonix (3) Abnormal stress echo: Patient underwent catheterization 95% mid RCA 80% distal RCA PCI with 1 SUMAN to mid RCA PCI with 1 SUMAN to distal RCA (4) Hypothyroidism: No acute process - continue with Synthroid (5) CKD (chronic kidney disease), stage III: CKD III - IV - LR overnight in light of cardiac cath - follow renal indices - MONOGRAM MAKER 2.4 which is below his baseline (6) Metastatic renal cell carcinoma: Stable - Continue SUTENT- patient may take his own medication- daily -Appears to be some slight pulmonary metastasis present (7) Pancytopenia due to chemotherapy: Patient has pancytopenia likely from his chemotherapeutic medications to suppress his renal cell carcinoma that is metastatic Total Time Total Time Spent Total Time Spent (In Minutes): It required greater than 30 minutes to prepare this patient for discharge Discharge Plan Discharge Items Patient Disposition: Home - Self-Care Reason For Visit: DYSPNEA, CHEST PAIN Discharge Diagnosis: unstable angina s/p 2 Drug eluting stents placed in the right coronary artery Activity: Per Instructions section Activity Comment: no intentional activity until seen by DR Pozo in follow up Non-emergency contact: Primary Care Provider and Automated Process Operator Call non-emergency contact if: your symptoms worsen Follow-up/Referrals: Muna Freitas MD [Primary Care Provider] - Diet: Heart Healthy Addtl Attending Provider Instructions: you have also been started on a new blood pressure medicine, this will also help your heart, please discuss your blood pressure with DR pozo at follow up ACTIVITY RECOMMENDATIONS: Excess manipulation of the wrist should be avoided for the next 24-48 hours. * No lifting over 2 pounds (approximately a 1/2 gallon of milk) with the utilized arm for 24 hours. * No strenuous activity such as bowling or tennis for 3 days. * Keep the site of the procedure covered with a bandage for 24 hours. *You may shower the day after the procedure. Do not take a tub bath or submerge the puncture site in water for the next 3 days. *Do not operate any motorized equipment for 3 days. SPECIAL CARE INSTRUCTIONS: The site may be slightly bruised and sore following your procedure. Should any of the following occur, contact the Dr. who performed your procedure. 1. Redness/inflammation, swelling, chills, or fever, or colored drainage at procedure site within 3-7 days after your procedure. 2. Coldness, discoloration, ongoing numbness, severe pain, or swelling. Expect mild tingling of hand and tenderness at the puncture site for up to three days. If this persists beyond three days, or other symptoms develop, notify the Dr. who performed your procedure. BLEEDING: If the procedure site on your wrist begins to bleed, do not panic 1. Place 1 or 2 fingers firmly just slightly above the insertion site to stop the bleeding. You may be able to feel your pulse as you hold pressure. 2. Lift your finger after 5 minutes to see if the bleeding has stopped. 3. Once the bleeding has stopped, gently wipe the wrist area clean with a bandage. * If the bleeding from your wrist does not stop after 10 minutes, or if there is a large amount of bleeding or spurting, call 911 (do not drive yourself to the hospital). SKIN IRRITATION: * You may experience some redness and/or swelling in the area where radiation was administered. If any skin irritation occurs, please contact your family physician. FOLLOW UP VISIT: Keep any scheduled doctor appointments. Pending Studies at Discharge: No Stand-Alone Forms: [facility], Smoking Cessation Medications and DC Order Prescriptions: New clopidogrel 75 mg Tablet 75 mg PO QAM Qty: 90 RF: 3 metoprolol succinate 25 mg tablet extended release 24 hr 25 mg PO DAILY Qty: 30 RF: 5 atorvastatin 40 mg tablet 40 mg PO DAILY Qty: 30 RF: 5 Continued potassium citrate 10 mEq (1,080 mg) tablet extended release 10 meq PO BID Qty: 180 RF: 3 ondansetron HCl 8 mg tablet 8 mg PO DAILY PRN (Reason: Nausea) RF: 0 cetirizine [Zyrtec] 10 mg Tablet 10 mg PO DAILY PRN (Reason: seasonal allergies) RF: 0 tramadol 50 mg Tablet 50 mg PO Q6H PRN (Reason: Pain) RF: 0 fluticasone propionate [Flonase Allergy Relief] 50 mcg/actuation [place],Suspension 1 spray INTRANASAL BID PRN (Reason: seasonal allergies) RF: 0 melatonin 5 mg Tablet 5 mg PO HS RF: 0 valacyclovir 500 mg tablet 500 mg PO DAILY PRN (Reason: Infections) RF: 0 lorazepam 0.5 mg tablet 0.5 mg PO HS RF: 0 Sutent 50 mg Capsule 50 mg PO DIRECTED RF: 0 pantoprazole 40 mg tablet,delayed release (DR/EC) 40 mg PO QAM RF: 0 cyanocobalamin (vitamin B-12) [Vitamin B-12] 100 mcg Tablet 100 mcg PO QAM RF: 0 aspirin 81 mg Tablet,Delayed Release (Dr/Ec) 81 mg PO QAM RF: 0 hydrochlorothiazide 25 mg Tablet 25 mg PO QAM RF: 0 losartan 100 mg tablet 100 mg PO QAM RF: 0 levothyroxine 125 mcg tablet 125 mcg PO DAILYBB RF: 0 Discharge Orders: Discharge Order (Routine); Ordered 01/11/21 Ordered By: Haresh Bay Admission Data Admit Date/Time: 01/09/21 17:01 Attending Provider: Haresh Bay Admit Provider: Dipak Monroe Primary Care Provider: Muna Freitas Other Providers: Dipak Monroe ; Charles Hyde Other Interventions: Discharge Summary Assessment (RN) Last Done: 01/11/21 11:33 Coding Level of Care Code D/C DAY MANAGEMENT >30 MINS Diagnoses Dyspnea R06.00 GERD (gastroesophageal reflux disease) K21.9 Abnormal stress echo R94.39 Hypothyroidism E03.9 CKD (chronic kidney disease), stage III N18.30 Metastatic renal cell carcinoma C64.9 Laterality: unspecified laterality Pancytopenia due to chemotherapy D61.810
== END 2021-01-11 12:50 | disposition home or self-care (01) | DRG 246 ==
LOC: ED 08:45 → SUATTDRO 17:01 → 2N 17:01 → 2S 01-10 20:02
DX: K21.9 Gastro-esophageal reflux disease without esophagitis; I47.2 Ventricular tachycardia; N18.32 Chronic kidney disease, stage 3b; I25.110 Atherosclerotic heart disease of native coronary artery with unstable angina pectoris; F17.220 Nicotine dependence, chewing tobacco, uncomplicated; T45.1X5A Adverse effect of antineoplastic and immunosuppressive drugs, initial encounter; Z85.841 Personal history of malignant neoplasm of brain; Z79.890 Hormone replacement therapy; I12.9 Hypertensive chronic kidney disease with stage 1 through stage 4 chronic kidney disease, or unspecified chronic kidney disease; D61.810 Antineoplastic chemotherapy induced pancytopenia; F41.8 Other specified anxiety disorders; J45.909 Unspecified asthma, uncomplicated; D86.9 Sarcoidosis, unspecified; Z51.81 Encounter for therapeutic drug level monitoring; Z79.82 Long term (current) use of aspirin; Z79.899 Other long term (current) drug therapy; K52.1 Toxic gastroenteritis and colitis; Z90.5 Acquired absence of kidney; Z85.528 Personal history of other malignant neoplasm of kidney; Z86.73 Personal history of transient ischemic attack (TIA), and cerebral infarction without residual deficits; E03.9 Hypothyroidism, unspecified; Z20.822 Contact with and (suspected) exposure to COVID-19